=== PATIENT | male | born 1960 | race Caucasian/White ===

== ENCOUNTER 2018-07-09 08:35 | Outpatient (CLI) | payer BC, SELFPAY ==
[2018-07-09 10:00] LABS: TSH (W/Ref FT4) 2.79 uIU/mL (0.358-3.74)
== END 2018-07-09 08:55 ==
PROVIDERS: PCP Nurse Practitioner Family; Visit Provider Nurse Practitioner Family
DX: E03.9 Hypothyroidism, unspecified (principal)
CPT/HCPCS: 36415; 84443

== ENCOUNTER 2018-08-28 11:50 | Outpatient (CLI) | payer BC, SELFPAY ==
[2018-08-28 12:14] LABS: Abs Immature Grans 0.05 k/cumm (0.0-0.09); Absolute Basophil Count 0.03 k/cumm (0.0-0.2); Absolute Lymphocyte Count 2.96 k/cumm (1.2-3.4); Absolute Monocyte Count 1.09 k/cumm (0.11-0.7); Basophils % 0.3; Eosinophils % 0.9; HCT 47.5 % (40.0-50.0); HGB 16.3 g/dL (13.5-17.5); Immature Grans % 0.5; Lymphocytes % 27.1; Mean Corp. HGB Concentration 34.3 g/dL (32.0-36.0); Mean Corpuscular Volume 93.1 fL (80-95); Mean Platelet Volume 9.9 fL (8.0-11.0); Neutrophils % 61.2; Platelet Count 257 x1000/uL (130-400); RBC Distribution Width 13.5 % (11.8-14.1); White Blood Cell Count 10.93 k/cumm (4.4-10.8)
[2018-08-28 12:19] LABS: Absolute Neutrophil Count 6.69 k/cumm (1.2-6.7)
[2018-08-28 13:18] LABS: BUN 16 mg/dL (7-18); CREATININE 0.97 mg/dL (0.70-1.30); Calcium 9.3 mg/dL (8.5-10.1); Chloride 104 mmol/L (98-107); Glucose 118 mg/dL (70-100); Potassium 4.3 mmol/L (3.5-5.1); Sodium 140 mmol/L (136-145)
== END 2018-08-28 12:10 ==
PROVIDERS: PCP Nurse Practitioner Family; Visit Provider Nurse Practitioner Family
DX: Z01.818 Encounter for other preprocedural examination (principal)
CPT/HCPCS: 36415; 80048; 85025

== ENCOUNTER 2018-10-22 01:25 | Outpatient (CLI) | payer BC, SELFPAY ==
--- NOTE | 2018-10-22 10:58 | DI.RAD_ITS ---
SYMPTOMS/DIAGNOSIS: CERVICALGIA, M54.2, ? STENOSIS, DJD, OLD INJURY CERVICAL SPINE: Odontoid, AP, lateral and bilateral oblique views. No priors. The odontoid is intact. The lateral masses are well aligned. No acute fractures or subluxations are seen. There is mild disc space narrowing at C 5 - 6 and C 6 - 7. Endplate osteophytes are present from C 3 - 4 through C 6 - 7. There are degenerative changes of the facets seen at multiple levels bilaterally. Moderate narrowing of the neural foramen is seen on the left at C 3 - 4, C 5 - 6 and C 6 - 7 and the right from C 3 - 4 through C 6 - 7. The prevertebral soft tissues are unremarkable. IMPRESSION: Moderate degenerative changes throughout the cervical spine.
== END 2018-10-22 01:45 ==
PROVIDERS: PCP Nurse Practitioner Family; Visit Provider Nurse Practitioner Family
DX: M54.2 Cervicalgia (principal); M50.322 Other cervical disc degeneration at C5-C6 level
CPT/HCPCS: 72050

== ENCOUNTER 2019-02-25 11:10 | Outpatient (CLI) | payer MEDICAID, SELFPAY ==
--- NOTE | 2019-02-25 15:31 | DI.RAD_ITS ---
SYMPTOM/DIAGNOSIS: ? PATHOLOGICAL FX, ACUTE EXAC OF CHRONIC LOW BACK PAIN, M54.5, G89.29 LUMBAR SPINE: The vertebral bodies are intact. Disc space narrowing is noted at L 1-2 where prominent hypertrophic spurring is evident. Also there is disc space narrowing at L 3-4 and a narrowed vacuum disc is identified at L 4-5. Mild endplate spurring is noted at these levels. Degenerative facet joint changes are noted throughout. The pedicle, spinous and transverse processes are intact. There is no evidence of spondylosis or spondylolisthesis. The sacrum and sacroiliac joints are well maintained. SUMMARY: No evidence of a fracture. Degenerative changes as described above.
== END 2019-02-25 11:30 ==
PROVIDERS: PCP Nurse Practitioner Family; Visit Provider Nurse Practitioner Family
DX: G89.29 Other chronic pain (principal); M54.5 Low back pain; M51.36 Other intervertebral disc degeneration, lumbar region
CPT/HCPCS: 72110

== ENCOUNTER 2019-03-28 01:32 | Outpatient (CLI) | payer MEDICAID, SELFPAY ==
--- NOTE | 2019-03-28 13:35 | DI.MRI_ITS ---
SYMPTOMS/DIAGNOSIS: LUMBAGO WITH SCIATICA, BOTH SIDES; LOW BACK PAIN, CHRONIC PAIN; SPINAL STENOSIS; PAIN NOT BETTER WITH PHYSICAL THERAPY, M54.42, M54.41, M54.5, G89.29, M48.00, Z98.890 LUMBOSACRAL SPINE MRI: MRI examination of the lumbosacral spine was performed according to the usual protocol with additional pre and post contrast axial and sagittal T1 weighted images. The patient had a previous lumbar spine MRI on 01/22/18 and reportedly has had an interval facetectomy in August 2018. Facet hypertrophic changes again noted, question left facetectomy at L4-5. Please correlate with clinical history. No enhancing lesions seen. No evidence of abscess. Moderate disc bulge noted at L4-5 level similar to findings on previous examination. Moderate disc bulge also noted at L5-S1, quite similar to previous examination. Previously noted right lateral disc herniation at L3-4 is slightly less prominent on the current examination. No gross interval change in appearance of neural foramina with right-sided neural foraminal stenosis noted at L3-4, L4-5 and L5-S1 and left-sided neural foraminal stenosis noted at L4-5 and L5-S1. Note is again made of presumed healed bilateral L5 spondylolysis. CONCLUSION: No significant interval change in appearance except for a questioned slightly decreased prominence of right lateral disc herniation at L3- 4 in comparison with the previous examination of 01/22/18. The patient has reportedly had an interval facetectomy.
[2019-03-28 14:15] LABS: CREATININE 1.11 mg/dL (0.70-1.30)
[2019-03-28] MEDS: Normal Saline Flush 10 ML SYR IVP (14:43)
[2019-03-28] MEDS: Gadoterate meglumine 20 ML VIAL IVP (14:43)
[2019-03-28 15:05] LABS: Calculated LDL 39 mg/dL; Cholesterol 128 mg/dL (50-200); HDL Cholesterol 33 mg/dL (40-60); Triglyceride 283 mg/dL (30-150)
== END 2019-03-28 01:52 ==
PROVIDERS: PCP Nurse Practitioner Family; Visit Provider Nurse Practitioner Family
DX: E78.5 Hyperlipidemia, unspecified (principal); Z51.81 Encounter for therapeutic drug level monitoring; G89.29 Other chronic pain; M48.00 Spinal stenosis, site unspecified; M54.41 Lumbago with sciatica, right side; M54.42 Lumbago with sciatica, left side; M54.5 Low back pain; Z98.890 Other specified postprocedural states; M51.16 Intervertebral disc disorders with radiculopathy, lumbar region
CPT/HCPCS: 72158; 80061; 83721; 82565

== ENCOUNTER 2019-07-02 14:34 | Outpatient (CLI) | payer MEDICAID, SELFPAY ==
[2019-07-02 15:11] LABS: Abs Immature Grans 0.05 k/cumm (0.0-0.09); Absolute Basophil Count 0.05 k/cumm (0.0-0.2); Absolute Eosinophil Count 0.17 k/cumm (0.0-0.7); Absolute Lymphocyte Count 3.43 k/cumm (1.2-3.4); Absolute Monocyte Count 1.31 k/cumm (0.11-0.7); Basophils % 0.4; Eosinophils % 1.5; HCT 44.5 % (40.0-50.0); HGB 15.1 g/dL (13.5-17.5); Immature Grans % 0.4; Mean Corp. HGB Concentration 33.9 g/dL (32.0-36.0); Mean Corpuscular Hemoglobin 31.2 pg (27.0-33.0); Mean Corpuscular Volume 91.9 fL (80-95); Mean Platelet Volume 9.9 fL (8.0-11.0); Monocytes % 11.5; Neutrophils % 56.2; Platelet Count 337 x1000/uL (130-400); RBC 4.84 m/cumm (4.50-6.00); RBC Distribution Width 13.3 % (11.8-14.1); White Blood Cell Count 11.42 k/cumm (4.4-10.8)
[2019-07-02 15:12] LABS: Absolute Neutrophil Count 6.42 k/cumm (1.2-6.7)
[2019-07-02 15:55] LABS: ESR 16 mm/hr (1-20)
[2019-07-02 16:42] LABS: ALT 37 U/L (16-63); AST 21 U/L (15-37); Albumin 3.9 g/dL (3.4-5.0); Alkaline Phosphatase 180 U/L (46-116); Anion Gap 5.8 mmol/L (3-11); BUN 19 mg/dL (7-18); Bilirubin, Total 0.3 mg/dL (0.2-1.0); CO2 31.2 mmol/L (21.0-32.0); CREATININE 1.19 mg/dL (0.70-1.30); Calcium 9.3 mg/dL (8.5-10.1); Chloride 104 mmol/L (98-107); Folate 12.3 ng/mL (8.6-20.0); Glucose 99 mg/dL (70-100); Potassium 4.6 mmol/L (3.5-5.1); Sodium 141 mmol/L (136-145); TSH (W/Ref FT4) 7.86 uIU/mL (0.36-3.74); Total Protein 7.4 g/dL (6.4-8.2); Vitamin B12 405 pg/mL (193-986)
[2019-07-02 16:55] LABS: Hemoglobin A1C 6.1 % (4.5-6.2)
[2019-07-02 16:58] LABS: FREE T4 0.98 ng/dL (0.76-1.46)
[2019-07-03 11:09] LABS: Lyme Ab w Rflx to Lyme Confirm Negative; Syphilis Serology (RPR) Negative (Negative)
[2019-07-03 14:34] LABS: ANA Interpretation Positive (NEGAT); ANA Titer Pattern 1:320 Speckled
[2019-07-03 15:43] LABS: Albumin 57.3 % (55.8-66.1); Total Protein 7.4 g/dl (6.3-8.2)
[2019-07-03 18:28] LABS: Angiotensin Converting Enzyme 38 U/L (16 - 85)
[2019-07-04 17:00] LABS: Anaplasma phagocytophilum Negative (Negative); B. miyamotoi PCR Negative (Negative); Babesia divergens/MO-1 Negative (Negative); Babesia duncani Negative (Negative); Babesia microti Negative (Negative); Ehrlichia chaffeensis Negative (Negative); Ehrlichia ewingii/canis Negative (Negative); Ehrlichia muris eauclairensis Negative (Negative)
== END 2019-07-02 14:54 ==
PROVIDERS: PCP Nurse Practitioner Family; Visit Provider Nurse Practitioner Family
DX: E03.9 Hypothyroidism, unspecified (principal); R73.01 Impaired fasting glucose; G62.9 Polyneuropathy, unspecified
CPT/HCPCS: 36415; 80053; 82164; 85652; 87798; 82607; 82746; 83036; 84165; 84439; 84443; 85025; 86038; 86592; 86618

== ENCOUNTER 2019-07-14 08:56 | Outpatient (CLI) | payer MEDICAID, SELFPAY ==
[2019-07-14 15:06] LABS: TSH (W/Ref FT4) 4.44 uIU/mL (0.36-3.74)
[2019-07-15 13:54] LABS: HCV RNA Detection Quantitative Undetected IU/mL (UNDECT)
[2019-07-15 14:52] LABS: SS-A Antibody 8.4 Units (<20)
[2019-07-15 15:13] LABS: dsDNA Ab, IgG <12.3 IU/mL (<30)
[2019-07-16 12:23] LABS: Smooth Muscle Ab Screen Negative (Negative)
== END 2019-07-14 09:16 ==
PROVIDERS: PCP Family Medicine; Visit Provider Family Medicine
DX: E03.9 Hypothyroidism, unspecified (principal); G62.9 Polyneuropathy, unspecified
CPT/HCPCS: 36415; 86803; 84439; 84443; 86225; 86235; 86255; 87522

== ENCOUNTER 2019-10-03 11:20 | Outpatient (CLI) | payer MEDICAID, SELFPAY ==
[2019-10-03 13:08] LABS: TSH (W/Ref FT4) 4.19 uIU/mL (0.36-3.74)
[2019-10-03 13:31] LABS: FREE T4 1.07 ng/dL (0.76-1.46)
== END 2019-10-03 11:40 ==
PROVIDERS: PCP Family Medicine; Visit Provider Family Medicine
DX: E03.9 Hypothyroidism, unspecified (principal)
CPT/HCPCS: 36415; 82274; 84439; 84443

== ENCOUNTER 2020-03-03 02:42 | Outpatient (CLI) | payer MEDICAID, SELFPAY ==
[2020-03-03 10:35] LABS: TSH (W/Ref FT4) 4.64 uIU/mL (0.36-3.74)
[2020-03-03 10:51] LABS: FREE T4 1.26 ng/dL (0.76-1.46)
== END 2020-03-03 03:02 ==
PROVIDERS: PCP Family Medicine; Visit Provider Family Medicine
DX: E03.9 Hypothyroidism, unspecified (principal)
CPT/HCPCS: 36415; 84439; 84443

== ENCOUNTER 2020-07-05 06:06 | Outpatient (CLI) | payer MEDICAID, SELFPAY ==
[2020-07-05 13:53] LABS: TSH (W/Ref FT4) 1.39 uIU/mL (0.36-3.74)
== END 2020-07-05 06:26 ==
PROVIDERS: PCP Family Medicine; Visit Provider Family Medicine
DX: E03.9 Hypothyroidism, unspecified (principal)
CPT/HCPCS: 36415; 84443

== ENCOUNTER 2021-02-23 03:20 | Outpatient (CLI) | payer MEDICAID, SELFPAY ==
[2021-02-23 09:25] LABS: Calculated LDL 68 mg/dL (<100); Cholesterol 122 mg/dL (<200); HDL Cholesterol 37 mg/dL (40-60); TSH 3.18 uIU/mL (0.36-3.74); Triglyceride 85 mg/dL (<150)
== END 2021-02-23 03:21 | disposition home or self-care (01) ==
LOC: LBO 03:21
PROVIDERS: PCP Family Medicine; Visit Provider Family Medicine
DX: E03.9 Hypothyroidism, unspecified (principal); E78.5 Hyperlipidemia, unspecified
CPT/HCPCS: 36415; 80061; 84443

== ENCOUNTER 2022-03-20 02:46 | Outpatient (CLI) | payer MEDICARE, MEDICAID, SELFPAY ==
[2022-03-20 16:30] LABS: Anion Gap 6.8 mmol/L (3-11); BUN 22 mg/dL (7-18); CO2 27.2 mmol/L (21.0-32.0); Calcium 9.1 mg/dL (8.5-10.1); Chloride 101 mmol/L (98-107); Glucose 89 mg/dL (74-106); Sodium 135 mmol/L (136-145)
== END 2022-03-20 02:47 | disposition home or self-care (01) ==
LOC: LBO 02:46
PROVIDERS: PCP Family Medicine; Visit Provider Family Medicine
DX: I10 Essential (primary) hypertension (principal); E03.9 Hypothyroidism, unspecified
CPT/HCPCS: 36415; 80048; 84443

== ENCOUNTER → 2022-07-21 01:03 | Outpatient (CLI) | payer MEDICARE, MEDICAID, SELFPAY ==
--- OUTSIDE RECORDS SUMMARY | 2022-07-21 01:04 | XMS_ITS | Clinical Summary ---
:1960 Author Organization [facility] [place] [address] Care Team Providers Name Role Phone Price Kilpatrick DO Primary Care Provider Allergies Active Allergy Reactions Severity Noted Date Comments Hydrochlorothiazide Other (See Comments) 02/28/2019 Water retention,could not pee Lisinopril Itching 02/28/2019 Penicillins 02/19/2018 Medications Medication Sig Dispensed Refills Start Date End Date Status aspirin 81 mg Tablet, Take 1 tablet by 0 02/25/2015 Active Delayed Release (E.C.) mouth daily. atorvastatin (LIPITOR) Take 1 tablet by 0 10/22/2014 Active 10 mg Tablet mouth daily. cyclobenzaprine Take 1 tablet by 0 01/04/2018 Active (FLEXERIL) 10 mg Tablet mouth 3 times daily. levothyroxine take 1 tablet by 0 03/22/2018 Active (SYNTHROID) 100 mcg mouth every Tablet morning ;ON EMPTY STOMACH,AT LEAST 30-60 MINUTES BEFORE FOOD irbesartan (AVAPRO) 300 300 mg. 0 12/31/2018 Active mg Tablet lidocaine (XYLOCAINE) 5 APPLY twice a 0 02/27/2019 Active % Ointment day to four times a day if needed for pain omeprazole (PRILOSEC) 40 take 1 capsule 0 02/20/2019 Active mg Capsule, Delayed by mouth every Release(E.C.) morning AT LEAST 20-30 MINUTES BEFORE FIRST MEAL amLODIPine (NORVASC) 5 daily. 0 01/30/2019 Active mg Tablet lansoprazole (PREVACID) take 1 capsule 0 07/29/2019 Active 30 mg Capsule, Delayed by mouth once Release(E.C.) daily celecoxib (CELEBREX) 200 take 1 capsule 0 09/01/2019 Active mg Capsule by mouth daily losartan (COZAAR) 100 mg Take by mouth. 0 Active Tablet HYDROcodone-acetaminophe Take 1 tablet by 15 tablet 0 09/15/20 19 Active n (NORCO) 5-325 mg mouth every 6 Tablet hours as needed. Additional Information Patient not taking. Reported on 10/13/2019 ibuprofen (ADVIL;MOTRIN) 600 mg Take 1 tablet by mouth 20 tablet 0 09/15/2019 Active Tablet every 6 hours as needed for Pain. Additional Information Patient not taking. Reported on 10/13/2019 pantoprazole EC (PROTONIX) 40 mg Take 40 mg by mouth daily. 0 09/19/2019 Active Tablet, Delayed Release (E.C.) Active Problems Problem Noted Date Spinal stenosis 02/19/2018 Overview: L4-5, L5-S1 lateral recess and neurofora men Remote surgery right L4-5 Laser s urgery in [place] Social History Tobacco Use Types Packs/Day Years Used Date Current Every Day Smoker Cigarettes 1 20 Smokeless Tobacco: Never Used Tobacco Cessation: Ready to Quit: Yes; C ounseling Given: Yes Alcohol Use Standard Drinks/Week Comments Not Currently 0 (1 standard drink = 0.6 oz pure alcoho l) Sex Assigned at Date Recorded Not on file Last Filed Vital Signs Vital Sign Reading Time Taken Comments Blood Pressure 141/84 10/13/2019 7:37 AM EST Pulse 75 10/13/2019 7:37 AM EST Temperature 36.4 ??C (97.5 ??F) 10/13/2019 7:37 AM EST Respiratory Rate 16 06/03/2019 9:50 AM EDT Oxygen Saturation 97% 10/13/2019 7:37 AM EST Inhaled Oxygen Concentration - - Weight 124.7 kg (275 lb) 10/13/2019 7:37 AM EST Height 185.4 cm (6' 1) 10/13/2019 7:37 AM EST Body Mass Index 36.28 10/13/2019 7:37 AM EST Plan of Treatment Health Maintenance Due Date Last Done Comments Covid-19 Vaccine (#1) 06[birth year]14/1961 Pneumococcal Vaccine: At-Risk 5-64yrs (1 - PCV) 1968 HIV screen 1980 Hepatitis C Screening 1980 Tdap adult 1981 Tetanus vaccine 1981 Diabetes Screening (HgbA1C or Glucose) 2002 Colonoscopy 12/13/2007 Zoster vaccine (1 of 2) 2012 Advance Directive 2017 Influenza (Flu) vaccine (1 of 1 - Influenza standard 06/01/2022 series) Insurance Payer Benefit Plan / Subscriber ID Effective Dates Phone Addre ss Type [place] [id number] 2019-Pres [phone] [address] PRIMARY CARE nt 7 [facility] [id number] Advance Directives Latest Code Status on File Code Status Date Activated Date Inactivated Comments Full Code 06/03/2019 8:36 AM 06/03/2019 12:14 PM Does patient have capacity to make decision: Yes Care Teams Rag Sorter Relationship Specialty Start Date End Date Price Kilpatrick DO PCP - General Family Medicine 08/13/[address] [place] [address]
--- OUTSIDE RECORDS SUMMARY | 2022-07-21 01:04 | XMS_ITS | Encounter Summary ---
:1960 Author Organization [facility] [place] [address] Care Team Providers Name Role Phone Price Kilpatrick DO Primary Care Provider Encounter Details Date Type Department Care Team Description 01/08/2020 Telephone General Surgery at [facility] [place] [place] [address] Social History Tobacco Use Types Packs/Day Years Used Date Current Every Day Smoker Cigarettes 1 20 Smokeless Tobacco: Never Used Alcohol Use Standard Drinks/Week Comments Not Currently 0 (1 standard drink = 0.6 oz pure alcoho l) Sex Assigned at Date Recorded Not on file documented as of this encounter Plan of Treatment Not on filedocumented as of this encounter Visit Diagnoses Not on filedocumented in this encounter Care Teams Isolation Washer Relationship Specialty Start Date End Date Price Kilpatrick DO PCP - General Family Medicine 08/13/[address] [place] [address] documented as of this encounter
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
--- OUTSIDE RECORDS SUMMARY | 2022-07-21 01:05 | XMS_ITS | Encounter Summary ---
:1960 Author Organization [facility] [place] [address] Care Team Providers Name Role Phone Desire Augustin APRN Primary Care Provider Encounter Details Date Type Department Care Team Description 04/18/2018 Telephone Pain Management at [facility], [place] [address] Social History Tobacco Use Types Packs/Day Years Used Date Current Every Day Smoker Cigarettes 1 Smokeless Tobacco: Never Used Sex Assigned at Date Recorded Not on file documented as of this encounter Miscellaneous Notes Telephone Encounter - Lucrecia Ludwig RN - 04/18/2018 11:33 AM EDT Outgoing call to patient per Dr. Mclean He could go to Occupational Medicine and have an evaluation for this issue. ??I do not do these types of evaluations. ? Thanks, ? dvd No answer Nurse left a message awaiting call back at this time. documented in this encounter Plan of Treatment Not on filedocumented as of this encounter Visit Diagnoses Not on filedocumented in this encounter Care Teams Jewelry Coater Relationship Specialty Start Date End Date Desire Augustin APRN PCP - General Family Medicine 02/19/18 08/12/19 [address] [place] [address] documented as of this encounter
--- OUTSIDE RECORDS SUMMARY | 2022-07-21 01:05 | XMS_ITS | Encounter Summary ---
:1960 [place] [address] Care Team Providers Name Role Phone Belem Mckeon MD Primary Care Provider Encounter Details Date Type Department Care Team Description 01/22/2018 Hospital Encounter Radiology Library at Manuela Kohler MD [facility] [place] [address] [place] [address] [phone] (Wo rk) Social History Tobacco Use Types Packs/Day Years Used Date Never Assessed Sex Assigned at Date Recorded Not on file documented as of this encounter Medications at Time of Discharge Medication Sig Dispensed Refills Start Date End Date aspirin 81 mg Tablet, Take 1 tablet by 0 02/26/20 15 Delayed Release (E.C.) mouth daily. atorvastatin (LIPITOR) 10 Take 1 tablet by 0 10/02 mg Tablet mouth daily. cyclobenzaprine (FLEXERIL) Take 1 tablet by 0 03/2018 10 mg Tablet mouth 3 times daily. losartan (COZAAR) 100 mg Take 1 tablet by 0 09/1009/03/2019 Tablet mouth daily. documented as of this encounter Plan of Treatment Not on filedocumented as of this encounter Procedures Procedure Name Priority Date/Time Associated Diagnosis Comme nts FILM LIBRARY Routine 01/22/2018 12:00 AM Results for this STORAGE ONLY MR EDT procedure ar e in SPINE the results section. documented in this encounter Results Film Library- Storage Only MR Spine (01/22/2018 12:00 AM EDT) Specimen (Source) Anatomical Location Collection Method / Collectio n Time Received Time / Laterality Volume Narrative RAD - 02/16/2018 2:17 PM EDT This exam is for storage only and is aut o-finalizing. Shivam Kohler MD IMG FILM LIBRARY ORDERABLES Performing Organization Address City/State/ZIP Code Phon e Number [place], [place] documented in this encounter Visit Diagnoses Not on filedocumented in this encounter Care Teams Federal Java Developer Relationship Specialty Start Date End Date Belem Mckeon MD PCP - General General Internal Medicine 07/14/15 [address] [place] [address] documented as of this encounter
--- OUTSIDE RECORDS SUMMARY | 2022-07-21 01:05 | XMS_ITS | Encounter Summary ---
:1960 Author Organization [facility] [place] [address] Care Team Providers Name Role Phone Desire Augustin APRN Primary Care Provider Reason for Referral Diagnostic Test (Routine) - Specialty Diagnoses / Procedures Referred By Contact Refer red To Contact Radiology Diagnoses Hari San MD [facility] Rad Mri Procedures MRI Cervical Spine wo Contrast (Generic) [address] [facility] [address] [address] Fax: Referral ID Status Reason Start Date Expiration Visits Visits Date Requested Authorized [id number] Specialty 06/09/2019 09/07/2019 1 1 Service Requested iagnostic Test (Routine) - Closed Specialty Diagnoses / Procedures Referred By Contact Refer red To Contact Radiology Diagnoses Hari San MD [facility] Rad Mri Procedures MRI Brain wo Contrast [address] [facility] 10 [place] [address] [place] [address] Fax: Referral ID Status Reason Start Date Expiration Date Visits V isits Requested Authorized [id number] Closed Specialty 06/09/2019 09/07/2019 1 1 Service Requested Reason for Visit Diagnostic Test (Routine) - Closed Specialty Diagnoses / Procedures Referred By Contact Refer red To Contact Radiology Diagnoses Hari San MD [facility] Rad Mri Procedures MRI Brain wo Contrast [address] [facility] [address] [place] [address] [place] [address] Fax: Referral ID Status Reason Start Date Expiration Date Visits V isits Requested Authorized [id number] Closed Specialty 06/09/2019 09/07/2019 1 1 Service Requested Encounter Details Date Type Department Care Team Description 06/19/2019 Hospital Encounter Radiology MRI at Hari Wu MD Ariadne Turner [facility] [place] [address] [place] [address] [phone] Social History Tobacco Use Types Packs/Day Years Used Date Current Every Day Smoker Cigarettes 1 Smokeless Tobacco: Never Used Alcohol Use Standard Drinks/Week Comments Not Currently 0 (1 standard drink = 0.6 oz pure alcoho l) Sex Assigned at Date Recorded Not on file documented as of this encounter Medications at Time of Discharge Medication Sig Dispensed Refills Start Date End Date irbesartan (AVAPRO) 300 mg 300 mg. 0 9 Tablet lidocaine (XYLOCAINE) 5 % APPLY twice a day 0 Ointment to four times a day if needed for pain omeprazole (PRILOSEC) 40 mg take 1 capsule by 0 0 02/20/2019 Capsule, Delayed mouth every Release(E.C.) morning AT LEAST 20-30 MINUTES BEFORE FIRST MEAL amLODIPine (NORVASC) 5 mg daily. 0 01/30/2019 Tablet levothyroxine (SYNTHROID) take 1 tablet by 0 03/02 100 mcg Tablet mouth every morning ;ON EMPTY STOMACH,AT LEAST 30-60 MINUTES BEFORE FOOD aspirin 81 mg Tablet, Take 1 tablet by 0 02/26/20 15 Delayed Release (E.C.) mouth daily. atorvastatin (LIPITOR) 10 Take 1 tablet by 0 10/02 mg Tablet mouth daily. cyclobenzaprine (FLEXERIL) Take 1 tablet by 0 03/2018 10 mg Tablet mouth 3 times daily. esomeprazole (NEXIUM) 40 mg Take 40 mg by 0 09/03/2019 Capsule, Delayed mouth 2 times Release(E.C.) daily. losartan (COZAAR) 100 mg Take 1 tablet by 0 09/1009/03/2019 Tablet mouth daily. documented as of this encounter Plan of Treatment Not on filedocumented as of this encounter Procedures Procedure Name Priority Date/Time Associated Diagnosis Comme nts MRI CERVICAL SPINE Routine 06/19/2019 10:51 AM Ataxia Re sults for this WO CONTRAST EDT procedure are i n the results section. MRI BRAIN WO Routine 06/19/2019 10:51 AM Ataxia Results for this CONTRAST EDT procedure are i n the results section. documented in this encounter Results MRI Cervical Spine wo Contrast (Generic) (06/19/2019 10:51 AM EDT) Anatomical Region Laterality Modality C-spine Magnetic Resonance Specimen (Source) Anatomical Location Collection Method / Collectio n Time Received Time / Laterality Volume Impressions 06/19/2019 11:28 AM EDT No definite evidence for focal neurodegenerative process. No evidence for cervical myelopathy. Thank you for letting us participate in the care of this patient. For questions regarding this report, please contact e number below. ? Narrative 06/19/2019 11:28 AM EDT EXAMINATION: MRI CERVICAL SPINE WO CONTRAST (GENERIC), MRI BRAIN WO CONTRAST CLINICAL HISTORY: ataxia, attn: posterio r fossa and craniocervical junction and cervical cord TECHNIQUE: MRI of the brain and cervical spine perf ormed without intravenous contrast administration. COMPARISON: None FINDINGS: Brain: A few scattered nonspecific foci of white matter T2 prolongation. No mass effect or diffusion-weighted abnormality . No evidence for prior cerebellar infarction. The ventricles are within no rmal limits of caliber. Only mild prominence of superior vermian sulci. Mi dline sagittal structures are otherwise unremarkable. No disproportionate brains tem or cerebellar atrophy. Perivascular spaces noted in the basal ganglia and br ainstem. Trace ethmoid air cell mucosal thickening. The remainder the paranasal sinuses and otomastoid spaces are clear. The orbits appear normal. Cervical spine: Mild degenerative change posterior to the dens which mildly indents the ventral thecal sac without c ausing canal stenosis. The cervical cord is normal in caliber. No definite cord s ignal. Regional marrow signal is unremarkable. Right uncovertebral and facet arthropath y at C2-C3 produce at least moderate right neural foraminal narrowing. Withou t a known stenosis. Asymmetric right uncovertebral and bilateral facet arthro nathalia at C3-C4 produce at least moderate bilateral neural foraminal stenosis. Rig ht paracentral disc protrusion and right worse than left uncovertebral osteophyte s and facet arthropathy at C4-5 produce severe right neural foraminal stenosis a nd mild right canal narrowing. Posterior disc osteophyte complex and small centra l disc protrusion at C5-6 produces mild canal narrowing. Uncovertebral osteophyt es and facet arthropathy produce moderate to severe neural foraminal sten osis at C5-6 posterior disc osteophyte complex at C6-7 and inward buckling of l igamentum flavum contribute to mild to moderate canal narrowing moderate neural foraminal narrowing. Procedure Note Abena Fink MD - 06/19/2019Form atting of this note might be different from the original. EXAMINATION: MRI CERVICAL SPINE WO CONTR AST (GENERIC), MRI BRAIN WO CONTRAST CLINICAL HISTORY: ataxia, attn: posterio r fossa and craniocervical junction and cervical cord TECHNIQUE: MRI of the brain and cervical spine perf ormed without intravenous contrast administration. COMPARISON: None FINDINGS: Brain: A few scattered nonspecific foci of white matter T2 prolongation. No mass effect or diffusion-weighted abnormality . No evidence for prior cerebellar infarction. The ventricles are within no rmal limits of caliber. Only mild prominence of superior vermian sulci. Mi dline sagittal structures are otherwise unremarkable. No disproportionate brains tem or cerebellar atrophy. Perivascular spaces noted in the basal ganglia and br ainstem. Trace ethmoid air cell mucosal thickening. The remainder the paranasal sinuses and otomastoid spaces are clear. The orbits appear normal. Cervical spine: Mild degenerative change posterior to the dens which mildly indents the ventral thecal sac without c ausing canal stenosis. The cervical cord is normal in caliber. No definite cord s ignal. Regional marrow signal is unremarkable. Right uncovertebral and facet arthropath y at C2-C3 produce at least moderate right neural foraminal narrowing. Withou t a known stenosis. Asymmetric right uncovertebral and bilateral facet arthro nathalia at C3-C4 produce at least moderate bilateral neural foraminal stenosis. Rig ht paracentral disc protrusion and right worse than left uncovertebral osteophyte s and facet arthropathy at C4-5 produce severe right neural foraminal stenosis a nd mild right canal narrowing. Posterior disc osteophyte complex and small centra l disc protrusion at C5-6 produces mild canal narrowing. Uncovertebral osteophyt es and facet arthropathy produce moderate to severe neural foraminal sten osis at C5-6 posterior disc osteophyte complex at C6-7 and inward buckling of l igamentum flavum contribute to mild to moderate canal narrowing moderate neural foraminal narrowing. IMPRESSION No definite evidence for focal neurodege nerative process. No evidence for cervical myelopathy. Thank you for letting us participate in the care of this patient. For questions regarding this report, please contact e number below. Hari Matute MD IMG MRI ORDERABLES MRI Brain wo Contrast (06/19/2019 10:51 AM EDT) Anatomical Region Laterality Modality Head Magnetic Resonance Specimen (Source) Anatomical Location Collection Method / Collectio n Time Received Time / Laterality Volume Impressions 06/19/2019 11:28 AM EDT No definite evidence for focal neurodegenerative process. No evidence for cervical myelopathy. Thank you for letting us participate in the care of this patient. For questions regarding this report, please contact e number below. ? Narrative 06/19/2019 11:28 AM EDT EXAMINATION: MRI CERVICAL SPINE WO CONTRAST (GENERIC), MRI BRAIN WO CONTRAST CLINICAL HISTORY: ataxia, attn: posterio r fossa and craniocervical junction and cervical cord TECHNIQUE: MRI of the brain and cervical spine perf ormed without intravenous contrast administration. COMPARISON: None FINDINGS: Brain: A few scattered nonspecific foci of white matter T2 prolongation. No mass effect or diffusion-weighted abnormality . No evidence for prior cerebellar infarction. The ventricles are within no rmal limits of caliber. Only mild prominence of superior vermian sulci. Mi dline sagittal structures are otherwise unremarkable. No disproportionate brains tem or cerebellar atrophy. Perivascular spaces noted in the basal ganglia and br ainstem. Trace ethmoid air cell mucosal thickening. The remainder the paranasal sinuses and otomastoid spaces are clear. The orbits appear normal. Cervical spine: Mild degenerative change posterior to the dens which mildly indents the ventral thecal sac without c ausing canal stenosis. The cervical cord is normal in caliber. No definite cord s ignal. Regional marrow signal is unremarkable. Right uncovertebral and facet arthropath y at C2-C3 produce at least moderate right neural foraminal narrowing. Withou t a known stenosis. Asymmetric right uncovertebral and bilateral facet arthro nathalia at C3-C4 produce at least moderate bilateral neural foraminal stenosis. Rig ht paracentral disc protrusion and right worse than left uncovertebral osteophyte s and facet arthropathy at C4-5 produce severe right neural foraminal stenosis a nd mild right canal narrowing. Posterior disc osteophyte complex and small centra l disc protrusion at C5-6 produces mild canal narrowing. Uncovertebral osteophyt es and facet arthropathy produce moderate to severe neural foraminal sten osis at C5-6 posterior disc osteophyte complex at C6-7 and inward buckling of l igamentum flavum contribute to mild to moderate canal narrowing moderate neural foraminal narrowing. Procedure Note Abena Fink MD - 06/19/2019Form atting of this note might be different from the original. EXAMINATION: MRI CERVICAL SPINE WO CONTR AST (GENERIC), MRI BRAIN WO CONTRAST CLINICAL HISTORY: ataxia, attn: posterio r fossa and craniocervical junction and cervical cord TECHNIQUE: MRI of the brain and cervical spine perf ormed without intravenous contrast administration. COMPARISON: None FINDINGS: Brain: A few scattered nonspecific foci of white matter T2 prolongation. No mass effect or diffusion-weighted abnormality . No evidence for prior cerebellar infarction. The ventricles are within no rmal limits of caliber. Only mild prominence of superior vermian sulci. Mi dline sagittal structures are otherwise unremarkable. No disproportionate brains tem or cerebellar atrophy. Perivascular spaces noted in the basal ganglia and br ainstem. Trace ethmoid air cell mucosal thickening. The remainder the paranasal sinuses and otomastoid spaces are clear. The orbits appear normal. Cervical spine: Mild degenerative change posterior to the dens which mildly indents the ventral thecal sac without c ausing canal stenosis. The cervical cord is normal in caliber. No definite cord s ignal. Regional marrow signal is unremarkable. Right uncovertebral and facet arthropath y at C2-C3 produce at least moderate right neural foraminal narrowing. Withou t a known stenosis. Asymmetric right uncovertebral and bilateral facet arthro nathalia at C3-C4 produce at least moderate bilateral neural foraminal stenosis. Rig ht paracentral disc protrusion and right worse than left uncovertebral osteophyte s and facet arthropathy at C4-5 produce severe right neural foraminal stenosis a nd mild right canal narrowing. Posterior disc osteophyte complex and small centra l disc protrusion at C5-6 produces mild canal narrowing. Uncovertebral osteophyt es and facet arthropathy produce moderate to severe neural foraminal sten osis at C5-6 posterior disc osteophyte complex at C6-7 and inward buckling of l igamentum flavum contribute to mild to moderate canal narrowing moderate neural foraminal narrowing. IMPRESSION No definite evidence for focal neurodege nerative process. No evidence for cervical myelopathy. Thank you for letting us participate in the care of this patient. For questions regarding this report, please contact e number below. Hari Matute MD IMG MRI ORDERABLES documented in this encounter Visit Diagnoses Diagnosis Ataxia Lack of coordination documented in this encounter Care Teams Manganese Heater Relationship Specialty Start Date End Date Desire Augustin APRN PCP - General Family Medicine 02/19/18 08/12/[address] [place] [address] documented as of this encounter
--- OUTSIDE RECORDS SUMMARY | 2022-07-21 01:05 | XMS_ITS | Encounter Summary ---
:1960 Author Organization [facility] [place] [address] Care Team Providers Name Role Phone Desire Augustin APRN Primary Care Provider Encounter Details Date Type Department Care Team Description 09/10/2018 Interpretation Only [facility] Angela Grubbs, [address], [place] [address] [address] [facility] [phone] [place], [place] [address] (Wo rk) Social History Tobacco Use Types Packs/Day Years Used Date Current Every Day Smoker Cigarettes 1 Smokeless Tobacco: Never Used Sex Assigned at Date Recorded Not on file documented as of this encounter Plan of Treatment Not on filedocumented as of this encounter Procedures Procedure Name Priority Date/Time Associated Diagnosis Comme nts XR FLUORO MORE THAN Routine 09/10/2018 12:00 AM R esults for this ONE HOUR EST procedure are i n the results section. documented in this encounter Results XR FLUORO MORE THAN ONE HOUR (09/10/2018 12:00 AM EST) Anatomical Region Laterality Modality Other Specimen (Source) Anatomical Location Collection Method / Collectio n Time Received Time / Laterality Volume 09/10/2018 Impressions 09/11/2018 2:22 PM EST C-arm fluoroscopy used for intraoperative guidance. The osseous structures are poorly visualized on these lateral lumbo sacral fluoroscopic images. Fluoroscopy time: 5.9 seconds Dose (mGy): 2.95 Narrative 09/11/2018 2:22 PM EST EXAMINATION: C-ARM (=>1HR) CLINICAL HISTORY: L4/L5 MEDIAL FACETECTO MY - LEFT, ?? Procedure Note Iam Pino MD - 09/11/2018Format ting of this note might be different from the original. EXAMINATION: C-ARM (=>1HR) CLINICAL HISTORY: L4/L5 MEDIAL FACETECTO MY - LEFT, IMPRESSION C-arm fluoroscopy used for intraoperativ e guidance. The osseous structures are poorly visualized on these lateral lumbo sacral fluoroscopic images. Fluoroscopy time: 5.9 seconds Dose (mGy): 2.95 Angela Grubbs MD [facility] documented in this encounter Visit Diagnoses Not on filedocumented in this encounter Care Teams Pet Supplies Salesperson Relationship Specialty Start Date End Date Desire Augustin APRN PCP - General Family Medicine 02/19/18 08/12/[address] [place] [address] documented as of this encounter
--- OUTSIDE RECORDS SUMMARY | 2022-07-21 01:05 | XMS_ITS | Encounter Summary ---
:1960 Author Organization [facility] [place] [address] Care Team Providers Name Role Phone Desire Augustin APRN Primary Care Provider Reason for Visit Reason Onset Date Comments Pre Procedure Call 05/17/2018 Encounter Details Date Type Department Care Team Description 05/17/2018 Telephone Pain Management at Patricia Silvestre LNA [place] [address] Social History Tobacco Use Types Packs/Day Years Used Date Current Every Day Smoker Cigarettes 1 Smokeless Tobacco: Never Used Sex Assigned at Date Recorded Not on file documented as of this encounter Miscellaneous Notes Telephone Encounter - Patricia Silvestre LNA - 05/17/2018 12:27 PM EDT Du Mojica :1960 Message left: I left a message on answering machine Mr. Mojica at 12:27 PM regarding his upcoming Left lumbar epidural steroid injection with Dr. Kayli Larson MD. Message included the followin. Patient instructed to arrive at 100 (30 minutes prior to procedure start time) on 05/20/2018 (dateof procedure) with their driver's license reviewing officer. 2. Following instructions left in the message: - Bring Updated list of medications including dosage and reason for taking. - Call the Pain Clinic Nurse at for: ~Procedure instructions. ~If you are taking antibiotics. ~If you have any signs or symptoms of infection, cold or flu. ~If you have any skin breakdown (rashes, cysts, or abscess.) ~If you are taking anticoagulants / blood thinners (Plavix, Pletal, Lovenox, Coumadin, etc). ~If you had any steroid injections anywhere in your body within the last two weeks? GERTRUDIS Lau documented in this encounter Plan of Treatment Not on filedocumented as of this encounter Visit Diagnoses Not on filedocumented in this encounter Care Teams Grain Merchandiser Relationship Specialty Start Date End Date Desire Augustin APRN PCP - General Family Medicine 02/19/18 08/12/[address] [place] [address] documented as of this encounter
--- OUTSIDE RECORDS SUMMARY | 2022-07-21 01:05 | XMS_ITS | Encounter Summary ---
:1960 [place] [address] Care Team Providers Name Role Phone Desire Augustin APRN Primary Care Provider Encounter Details Date Type Department Care Team Description 02/25/2019 Ancillary Procedure Radiology Library at Hope Reid [facility] [place] [address] [place] [address] PAIN MEDICINE [phone] [place], [place] [address] (Wo rk) Social History Tobacco Use Types Packs/Day Years Used Date Current Every Day Smoker Cigarettes 1 Smokeless Tobacco: Never Used Sex Assigned at Date Recorded Not on file documented as of this encounter Plan of Treatment Not on filedocumented as of this encounter Procedures Procedure Name Priority Date/Time Associated Diagnosis Comme nts FILM LIBRARY Routine 02/25/2019 12:00 AM Results for this STORAGE ONLY DX EDT procedure ar e in SPINE the results section. documented in this encounter Results Film Library- Storage Only DX Spine (02/25/2019 12:00 AM EDT) Specimen (Source) Anatomical Location Collection Method / Collectio n Time Received Time / Laterality Volume Narrative RAD - 02/26/2019 11:16 AM EDT This exam is auto-finalizing. It's purpo se is for storage only. Nannette Reid APRN IMG FILM LIBRARY ORDERABLES Performing Organization Address City/State/ZIP Code Phon e Number RAD [place], [place] documented in this encounter Visit Diagnoses Not on filedocumented in this encounter Care Teams Technical Sales Support Specialist Relationship Specialty Start Date End Date Desire Augustin, SAUSAGE MACHINE OPERATOR PCP - General Family Medicine 02/19/18 08/12/[address] [place] [address] documented as of this encounter
--- OUTSIDE RECORDS SUMMARY | 2022-07-21 01:05 | XMS_ITS | Encounter Summary ---
:1960 [place] [address] Care Team Providers Name Role Phone Belem Mckeon MD Primary Care Provider Encounter Details Date Type Department Care Team Description 12/13/2017 Hospital Encounter Radiology Library at Maunela Kohler MD [facility] [place] [address] [place] [address] [phone] (Wo rk) Social History Tobacco Use Types [...] by 0 10/02 mg Tablet mouth daily. losartan (COZAAR) 100 mg Take 1 tablet by 0 09/1009/03/2019 Tablet mouth daily. documented as of this encounter Plan of Treatment Not on filedocumented as of this encounter Procedures Procedure Name Priority Date/Time Associated Diagnosis Comme nts FILM LIBRARY Routine 12/13/2017 12:00 AM Results for this STORAGE ONLY DX HIP EDT procedur e are in the results section. documented in this encounter Results Film Library- Storage Only DX Hip (12/13/2017 12:00 AM EDT) Specimen (Source) Anatomical Location Collection Method / Collectio n Time Received Time / Laterality Volume Narrative RAD - 02/16/2018 2:16 PM EDT This exam is for storage only and is aut o-finalizing. Shivam Kohler MD IMG FILM LIBRARY ORDERABLES Performing Organization Address City/State/ZIP Code Phon e Number [place], [place] documented in this encounter Visit Diagnoses Not on filedocumented in this encounter Care Teams Wool Supplier Relationship Specialty Start Date End Date Belem Mckeon MD PCP - General General Internal Medicine 07/14/15 [address] [place] [address] documented as of this encounter
--- OUTSIDE RECORDS SUMMARY | 2022-07-21 01:05 | XMS_ITS | Encounter Summary ---
:1960 [place] [address] Care Team Providers Name Role Phone Desire Augustin APRN Primary Care Provider Encounter Details Date Type Department Care Team Description 03/28/2019 Ancillary Procedure Radiology Library at [facility] [place] MIREYA [facility] [place] [place] [address] PAIN MEDICINE [phone] [place], [place] [address] (Wo rk) Social History Tobacco Use Types Packs/Day Years Used Date Current Every Day Smoker Cigarettes 1 Smokeless Tobacco: Never Used Sex Assigned at Date Recorded Not on file documented as of this encounter Plan of Treatment Not on filedocumented as of this encounter Procedures Procedure Name Priority Date/Time Associated Diagnosis Comme nts FILM LIBRARY Routine 03/28/2019 12:00 AM Results for this STORAGE ONLY MR EDT procedure ar e in SPINE the results section. documented in this encounter Results Film Library- Storage Only MR Spine (03/28/2019 12:00 AM EDT) Specimen (Source) Anatomical Location Collection Method / Collectio n Time Received Time / Laterality Volume Narrative ADAN - 04/01/2019 1:20 PM EDT This exam is auto-finalizing. It's purpo se is for storage only. Nannette Reid APRN IMG FILM LIBRARY ORDERABLES Performing Organization Address City/State/ZIP Code Phon e Number [facility] [place] documented in this encounter Visit Diagnoses Not on filedocumented in this encounter Care Teams Video Operator Relationship Specialty Start Date End Date Desire Augustin, DIRECTOR INTERNAL COMMUNICATIONS PCP - General Family Medicine 02/19/18 08/12/[address] [place] [address] documented as of this encounter
--- OUTSIDE RECORDS SUMMARY | 2022-07-21 01:05 | XMS_ITS | Encounter Summary ---
:1960 [place] [address] Care Team Providers Name Role Phone Belem Mckeon MD Primary Care Provider Encounter Details Date Type Department Care Team Description 12/13/2017 Hospital Encounter Radiology Library at AdrianManuela MD [facility] [place] [address] [place] [address] [phone] (Wo rk) Social History Tobacco Use Types [...] Diagnosis Comme nts FILM LIBRARY Routine 12/13/2017 12:05 AM Results for this STORAGE ONLY DX EDT procedure ar e in SPINE the results section. documented in this encounter Results Film Library- Storage Only DX Spine (12/13/2017 12:05 AM EDT) Specimen (Source) Anatomical Location Collection Method / Collectio n Time Received Time / Laterality Volume Narrative RAD - 02/16/2018 2:16 PM EDT This exam is for storage only and is aut o-finalizing. Shivam Kohler MD IMG FILM LIBRARY ORDERABLES Performing Organization Address City/State/ZIP Code Phon e Number RAD [place], [place] documented in this encounter Visit Diagnoses Not on filedocumented in this encounter Care Teams Deputy Bailiff Relationship Specialty Start Date End Date Belem Mckeon MD PCP - General General Internal Medicine 07/14/[address] [place] [address] documented as of this encounter
--- OUTSIDE RECORDS SUMMARY | 2022-07-21 01:05 | XMS_ITS | Encounter Summary ---
:1960 [place] [address] Care Team Providers Name Role Phone Desire Augustin APRN Primary Care Provider Reason for Visit Reason Onset Date Comments Pre Procedure Call 03/12/2018 Encounter Details Date Type Department Care Team Description 03/12/2018 Telephone Pain Management at [facility], [place] [address] Social History Tobacco Use Types Packs/Day Years Used Date Current Every Day Smoker Cigarettes 1 Smokeless Tobacco: Never Used Sex Assigned at Date Recorded Not on file documented as of this encounter Miscellaneous Notes Telephone Encounter - [facility], [facility] - 03/12/2018 1:08 PM EDT uD Mojica :1960 Message left: I left a message on answering machine Mr. Mojica at 1:08 PM regarding his upcoming Left lumbar epidural steroid injection with Dr. Eligio Mclean, DO. Message included the followin. Patient instructed to arrive at 1:45 (30 minutes prior to procedure start time) on 03/14/2018 (date of procedure) with their feeder driver. 2. Following instructions left in the message: [...] body within the last two weeks? GERTRUDIS Pena documented in this encounter Plan of Treatment Not on filedocumented as of this encounter Visit Diagnoses Not on filedocumented in this encounter Care Teams Manager Registration Relationship Specialty Start Date End Date Desire Augustin APRN PCP - General Family Medicine 02/19/18 08/12/[address] [place] [address] documented as of this encounter
--- OUTSIDE RECORDS SUMMARY | 2022-07-21 01:05 | XMS_ITS | Encounter Summary ---
:1960 Author Organization [facility] [place] [address] Care Team Providers Name Role Phone Desire Augustin APRN Primary Care Provider Reason for Referral Consultation (Routine) - Closed Specialty Diagnoses / Procedures Referred By Contact Refer red To Contact Pain Management Diagnoses Spinal stenosis of lumbar region with neurogenic claudication Shivam Kohler MD [facility] Procedures PRO INJECTION DX/THER SBST INTRLMNR LMBR/SAC W/[place] [address] [place] [address] Fax: Referral ID Status Reason Start Date Expiration Date Visits V isits Requested Authorized [id number] Closed Consult, 02/19/2018 02/19/2019 1 1 Test & Treat Reason for Visit Reason Comments Back Pain Left Leg Pain mostly Right Leg Pain Consultation (Routine) - Closed Specialty Diagnoses / Procedures Referred By Contact Refer red To Contact Orthopaedics Diagnoses Lumbar disc herniation/ sciatica/ failed PT/ MRI 01/22/18 & XR 12/13/17 @ [facility] Desire Augustin APRN [facility] [address] [place] [place] [address] [address] [place] [address] Referral ID Status Reason Start Date Expiration Date Visits V isits Requested Authorized [id number] Closed Consult, 02/15/2018 02/15/2019 1 1 Test & Treat Connection Center Encounter Details Date Type Department Care Team Description 02/19/2018 Office Visit [facility] Center at Shivam Kohler Spinal s tenosis of [place] lumbar region with [facility] aide [address] [place], [place] [facility] [address] [place] [address] [phone] Social History Tobacco Use Types Packs/Day Years Used Date Current Every Day Smoker Cigarettes 1 Smokeless Tobacco: Never Used Sex Assigned at Date Recorded Not on file documented as of this encounter Last Filed Vital Signs Vital Sign Reading Time Taken Comments Blood Pressure 161/105 02/19/2018 8:16 AM EDT Pulse - - Temperature - - Respiratory Rate - - Oxygen Saturation - - Inhaled Oxygen Concentration - - Weight 108.2 kg (238 lb 9.6 oz) 02/19/2018 8:16 AM EDT Height 188 cm (6' 2) 02/19/2018 8:16 AM EDT Body Mass Index 30.63 02/19/2018 8:16 AM EDT documented in this encounter Progress Notes Shivam Kohler MD - 02/19/2018 8:20 AM EDT Images from the original note were not included. Shivam Kohler MD MS FAOA Department of Orthopaedics [facility] February 19, 2018 Mr. Mojica is a 57-year-old gentleman seen today in the [facility] in consultation from Desire Augustin APRN. This gentleman is accompanied by his . He seen and evaluated for what appears to be chronic low back pain left buttock pain occasionally left thigh and posterior Leg pain numbness and tin gling in all toes left foot. Left leg seems to be the predominant problem worse towards the end of the day with prolonged standing or walking. Right leg is minimally involved. Symptoms have been present for over 8 months without specific known etiology or injury. Night pain is an occasional problem but not a predominant symptom. This gentleman has had substantial medical management including varying medications such as gabapentin, Lyrica, Flexeril, Mobic, all without relief. Physical therapy made his symptoms worse. healthcare translator is provided some relief. He has not had any injections. Ice seemsto help. His review of systems is negative for GI, , constitutional symptoms. He reports a remote surgery in the right L4-5 by laser technique in [place]. Allergies include reaction to penicillin. Height is 6 feet 2 inches, weight 238 pounds with a body mass index of 30.63. Pain over the past week described as worst imaginable. He smokes a pack of cigarettes per day as does his . In addition to his smoking is hypertension elevated lipids chronic right hip pain hypothyroidism and others. He works part-time at [employer]. This is a pleasant gentleman who moves easily about the office. His gait is normal. He can toe and heel walk without weakness. On inspection from the back he has a level pelvis and straight spine with no tenderness to palpation. Sciatic notches are nontender. Spinal alignment is normal. Skin color and temperature are normal. His lower extremity neurologic exam his reflexes are normal at the knees and ankles with negative Babinski's and clonus. Is very reassuring. Motor exam is completely normal. Sensation slightly diminished to light touch in the left lateral leg and left medial foot. Straight leg raise test is negative. Lumbar MRI is available to review from 01/22/18. This demonstrates multilevel degenerative changes. Patient reports having prior surgery L4-L5 right side by laser technique in in [place]. I am unable to find imaging evidence of that. He does have mild left lateral recess stenosis seen on axial T2 image 14 series 6 at the L4-L5 level and a hypertrophic left L5-S1 facets seen on axial T2 image 10series 6 both of which provide mild to moderate compression of the respective nerves. The L4 and L5 neural foramen on the left mild to moderately compressed as well. There is not one specific anatomic finding with a high degree of confidence that would explain all his presenting symptoms. Impression: Chronic low back and left leg pain possibly in the L5 or S1 distribution with mild to moderate lateral recess narrowing and foraminal narrowing the respective nerve roots. Recommendation: Reviewed these findings including the imaging studies with the patient and his .First discussed smoking cessation. I recommended and he is agreed to referral to the anesthesia painclinic for series of up to 3 lumbar epidural steroid injections in the low lumbar spine for both diagnostic and therapeutic purposes. If he does not have any substantial relief I would think surgical options would not be available. With substantial overall improvement even if temporary from the injections operative intervention may be reasonable for left-sided L4-5 L5-S1 decompression. If the injections are not helpful make an clinic referral for his chronic pain. If he does return he needs to complete a health survey. Trust[employer] voice recognition used for this diatation and I apologize for any mis-wording. Shivam Kohler MD MS FAOA Department of Orthopaedic Surgery [facility] [address] Regulatory Manager of Orthopaedic Surgery [facility] [phone] [email or web address] documented in this encounter Plan of Treatment Scheduled Referrals Name Type Priority Associated Diagnoses Order S chedule Referral to Pain Outpatient Referral Routine Spinal stenosis o f Ordered: Clinic lumbar region with 8 neurogenic claudication documented as of this encounter Visit Diagnoses Diagnosis Spinal stenosis of lumbar region with ne urogenic claudication Spinal stenosis, lumbar region, with aide rogenic claudication documented in this encounter Care Teams Sanforizer Relationship Specialty Start Date End Date Desire Augustin APRN PCP - General Family Medicine 02/19/18 08/12/[address] [place] [place] [address] documented as of this encounter
--- OUTSIDE RECORDS SUMMARY | 2022-07-21 01:05 | XMS_ITS | Encounter Summary ---
:1960 Author Organization [place] [address] Care Team Providers Name Role Phone Desire Augustin APRN Primary Care Provider Encounter Details Date Type Department Care Team Description 03/05/2019 Telephone Pain Management at [facility] [place], [place] [address] Social History Tobacco Use Types Packs/Day Years Used Date Current Every Day Smoker Cigarettes 1 Smokeless Tobacco: Never Used Sex Assigned at Date Recorded Not on file documented as of this encounter Miscellaneous Notes Telephone Encounter - Irma Hogue RN - 03/05/2019 1:17 PM EDT Du's called and stated that Du's pain has gotten worse and that Nannette had told themto call if it had. I told her that Nannette was not here today, but I would forward the message to her and that they should call the PCP and let them know what is going on. Du's said she would. documented in this encounter Plan of Treatment Not on filedocumented as of this encounter Visit Diagnoses Not on filedocumented in this encounter Care Teams Heavy Equipment Service Technician Relationship Specialty Start Date End Date Desire Augustin APRN PCP - General Family Medicine 02/19/18 08/12/19 [address] [place] [address] documented as of this encounter
--- OUTSIDE RECORDS SUMMARY | 2022-07-21 01:05 | XMS_ITS | Encounter Summary ---
:1960 Author Organization [facility] [address] Care Team Providers Name Role Phone Desire Augustin APRN Primary Care Provider Reason for Visit Reason Comments Back Pain Pain Management Consultation (Routine) - Closed Specialty Diagnoses / Procedures Referred By Contact Refer red To Contact Pain Management Diagnoses Lumbago with sciatica, right side LOW BACK PAIN, LUMBAGO W/SCIATICA PAIN- called for imaging 02/26 855 Desire Augustin APRN [facility] [address] [place] [place] [id number] [place] [phone] Fax: Referral ID Status Reason Start Date Expiration Date Visits V isits Requested Authorized [id number] Closed Consult, 02/25/2019 02/25/2020 1 1 [facility] Encounter Details Date Type Department Care Team Description 02/28/2019 Office Visit Pain Management at [facility] Spin al stenosis, [place] 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 unspecified spinal [facility] [address] [facility] [id number] [place] [address] [phone] Social History Tobacco Use Types Packs/Day Years Used Date Current Every Day Smoker Cigarettes 1 Smokeless Tobacco: Never Used Sex Assigned at Date Recorded Not on file documented as of this encounter Last Filed Vital Signs Vital Sign Reading Time Taken Comments Blood Pressure 146/104 02/28/2019 9:17 AM EDT Pulse 72 02/28/2019 9:17 AM EDT Temperature - - Respiratory Rate - - Oxygen Saturation 96% 02/28/2019 9:17 AM EDT Inhaled Oxygen Concentration - - Weight 121.4 kg (267 lb 9.6 oz) 02/28/2019 9:17 AM EDT Height 185.4 cm (6' 1) 02/28/2019 9:17 AM EDT Body Mass Index 35.31 02/28/2019 9:17 AM EDT documented in this encounter Progress Notes Nannette Reid APRN - 02/28/2019 9:30 AM EDT Images from the original note were not included. [facility] [place] [address] Phone: PAIN MANAGEMENT CONSULTATION NOTE DATE OF VISIT 02/28/2019 Patient Du Mojica 1960 REFERRING PROVIDER [place] [address] PRIMARY CARE PROVIDER Desire Augustin APRN CHIEF COMPLAINT: Du Mojica is a 58 y.o.male with right sided back and leg pain, who is seen in consultation at the request of [place] [address]. for evaluation, recommendations, and management.The history is obtained from the patient, and I have reviewed medical records provided by the referring physician and located in the electronic medical record to fill in gaps in the patient's recollection of events, treatments and outcomes. Goal of visit: to discuss treatment for newer onset of right back pain and anterior lateral leg pain HPI Seen previously by Dr Kohler in 2018 . Per his note: Mr. Mojica is a 57-year-old gentleman seen [...] relief. Physical therapy made his symptoms worse. 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 He has not had any injections. Ice seemsto help. His review of systems is negative for GI, , constitutional symptoms. He reports a remote surgery in the right L4-5 by laser technique in [place]. Recommendation: Reviewed these findings including the imaging [...] an clinic referral for his chronic pain. ?? Interval history: The patient is here accompanied by his . He was previously seen here for procedures only. He was seen by Dr. Norton in 2018 for his left- sided symptoms. Subsequent to this, he was seen by Dr. diallo at [facility] neurology and neurosurgery who performed surgery. The notes are not available but by report of the patient and his sound like they may have been a foraminotomy. Since then his left-sided symptoms have improved and the patient states that Dr. diallo had asked him if he had any right-sided symptoms because that side looked even worse. At that time the patient did not have right-sided symptoms he states but at other times in the visit he states that he did have concurrent right-sided low back pain. His symptoms of leg pain which traveled from the right side low back around to the lateral hip and down the lateral and anterior thigh to the kneecap and then down the tolentino to the dorsum of the foot have been going on for 7 weeks. He has been [facility] therapy but did not go because it had a poor experience the last time where the therapist actually made him hurt worse. He has been using NSAIDs and has developed a GERD and his primary care provider will no longer provide him with any NSAIDs because of this. He has since started on Prilosec. Hehas also tried an oral steroid which was helpful. He continues to smoke half pack a day and we had arather lengthy discussion about this today. He has not had any Sonia therapy. 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 Most recent MRI or Xray:01/22/2018 [facility] MRI lumbar spine PAIN ASSESSMENT: Description: Muscle spasms and a sciatica type pain on the right, also has groin pain 9 tearing flesh off bones, gets Worse as the day goes on) Weakness, numbness, tingling:numbness in bilateral feet, dorsum and all toes Saddle Anesthesia: no Other associated symptoms: back feel like hips are disconnected from the rest of the body Alleviating factors: steroid, rest, sitting helps a bit Aggravating factors standing, working Ave past week: 5- myD-H Pain 03/11/2018 VR12 - Physical Summary Component 18.75 VR12 - Mental Component Summary 50.56 MODEMS Expectation 80 Family History of Substance Abuse (Male) 0 Personal History of Substance Abuse(Male) 0 Age 0 History of Preadolescent sexual abuse(Male) 0 Psychological Disease 0 ORT Total Scores (Male) 0 BPI Severity Score 7.25 BPI Interference Score 9 FUNCTIONAL HISTORY Work: unemployed, laid off just before surgery ( was at [employer]) Interference with activities/ADL: has to take frequent breaks Exercise/activities: minimal How do you spend your day? House chores, yard work CURRENT THERAPIES: Has a PT referral, did not go yet ( last PT hurt him) cyclobenzeprine at bedtime PAST THERAPIES: Acetaminophen:yes NSAID:no reflux Opioids:no Storage of opioids:NA Antidepressants: no Anticonvulsants: lyrica in the past, gabapentin, nausea Muscle relaxants: cyclobenzeprine Topicals:lidocaine cream Herbal supplements/vitamins:no Injections: ist helpful, second no help Surgery: for left sided sciaitica Physical Therapy: planned, previous bad experience TENS: no Acupuncture:no Chiropractic:yes, Was helpful for a short period of time Massage: no CBT,Meditation/Imagery:no Yoga/Pardeep Chi/ Movement:no Marijuana:no Other: oral steroid with good results until done REVIEW OF SYSTEMS: Constitutional: denies fever, chills, cough, signs of infection, weight changes, fatigue HEENT: Denies headaches, blurry/limited vision, photophobia, difficulty hearing, Cardiac:denies chest pain or pressure, lower extremity edema Lungs: denies SOB on exertion GI: denies constipation or diarrhea, black tarry stool, loss of control; + GERD : denies frequency, urgency, hesitation, or incontinence Neuro: denies dizziness, numbness, seizures, tremors Muscle skeletal: denies use of ambulatory aide, falls Skin: denies open sores or rashes Psychological/Mood: positive Sleep: some interruption from muscle spasms RELEVANT SOCIAL HISTORY: Lives with: [employer] Alcohol: present and past: no Illegal/prescription drug misuse past/present:no Are you now or in past received methadone or suboxone (buprenorphine) for substance abuse? no Ever participated in drug or alcohol rehabilitation program? no Share your pain medications or accepted pain medications from family/friends?no History of incarceration?no Addiction Behaviors Checklist (NA = not assessed) Addiction behaviors--since last visit 1. Patient used illicit drugs or evidences problem drinking* no 2. Patient has hoarded meds no 3. Patient used more narcotic than prescribed no 4. Patient ran out of meds early no 5. Patient has increased use of narcotics no 6. Patient used analgesics PRN when prescription is for time contingent use no 7. Patient received narcotics from more than one provider no 8. Patient bought meds on the streets no Addiction behaviors--within current visit 1. Patient appears sedated or confused (e.g., slurred speech, unresponsive) no 2. Patient expresses worries about addiction no 3. Patient expressed a strong preference for a specific type of analgesic or a specific route of administration no 4. Patient expresses concern about future availability of narcotic no 5. Patient reports worsened relationships with family no 6. Patient misrepresented analgesic prescription or use no 7. Patient indicated she or he ?needs? or ?must have? analgesic meds no 8. Discussion of analgesic meds was the predominant issue of visit no 9. Patient exhibited lack of interest in rehab or self-management no 10. Patient reports minimal/inadequate relief from narcotic analgesic no 11. Patient indicated difficulty with using medication agreement no Other 1. Significant others express concern over patient???s use of analgesics no ABC Score: __0____ Score of ?3 indicates possible inappropriate opioid use and should flag for further examination of specific signs of misuse and more careful patient monitoring (i.e., urine screening, pill counts, removal of opioid). MEDICATIONS [facility] Prescription Monitoring Program was checked and no concerns were identified. Medications 05/20/18 1318 Medication Sig Taking? levothyroxine (SYNTHROID) 100 mcg Tablet take 1 tablet by mouth every morning ;ON EMPTY STOMACH,AT LEAST 30-60 MINUTES BEFORE FOOD aspirin 81 mg Tablet, Delayed Release (E.C.) Take 1 tablet by mouth daily. atorvastatin (LIPITOR) 10 mg Tablet Take 1 tablet by mouth daily. cyclobenzaprine (FLEXERIL) 10 mg Tablet Take 1 tablet by mouth 3 times daily. losartan (COZAAR) 100 mg Tablet Take 1 tablet by mouth daily. ADVERSE DRUG REACTIONS Allergies as of 02/28/2019 - Review Complete 05/20/2018 Allergen Reaction Noted ??? Penicillins 02/19/2018 MEDICAL HISTORY Past Medical History: Diagnosis Date ??? Hyperlipidemia ??? Hypertension ??? Spinal stenosis 02/19/2018 L4-5, L5-S1 lateral recess and neuroforamen Remote surgery right L4-5 1989' Laser surgery in [place] SURGICAL HISTORY Past Surgical History: Procedure Laterality Date ??? SPINE SURGERY FAMILY HISTORY No family history on file. Opioid Risk Tool Female Male 1. Family history of Substance Abuse Alcohol [] 1 [x] 3 Illegal Drugs [] 2 [] 3 Prescription Drugs [] 4 [] 4 2. Personal History of Substance Abuse Alcohol [] 3 [] 3 Illegal Drugs [] 4 [] 4 Prescription Drugs [] 5 [] 5 3. Age (buster box if 16-45) [] 1 [] 1 4. History of Preadolescent Sexual Abuse [] 3 [] 0 5. Psychological Disease Attention Deficit Disorder, Obsessive Compulsive D/o, Bipolar, Schizophrenia [] 2 [] 2 Depression [] 1 [] 1 TOTAL: 3 Comments about ORT in relation to this patient: Opioid Risk Category: low risk 0-3 PHYSICAL EXAMINATION There were no vitals filed for this visit. There is no height or weight on file to calculate BMI. There were no vitals taken for this visit. No flowsheet data found. Appearance/ Behavior Well groomed, good eye contact, relaxed, cooperative, normal speech, no acute distress, no involuntary movements Eyes Sclera anicteric, conjunctiva clear. ENT Hearing grossly intact Lungs CTA bilaterally Cardiovascular Reg RR without murmur, Skin No rash, asymmetric hair loss, bruises, scars, swelling Musckuloskeletal Inspection/Palpation/ Range of Motion/Facet Loading maneuvers Gait: Nonantalgic Assistive device: None Heel, toe, heel to toe: Without difficulty Inspection: good alignment, no excessive curvature, shoulder and hip levels equal bilaterally; no skin breakdown Palpation: Tender in the low back, no spasm noted, positive Kemps maneuver to the right. Normal strength, sensation, reflexes. Negative sacroiliac joint dysfunction tests. Femoral tension test producesback pain but no leg symptoms. Neuro Motor Strength Segment Muscle Action Bilateral Results C5 Detoid Shoulder abduction 5/5 C5 Biceps Elbow flexion 5/5 C6 Extensor carpi radialis Wrist extension 5/5 C7 Triceps Elbow extension 5/5 C8, T1 Hand intrinsics Grasp 5/5 L2-5, S 1 Gluteus medius Hip Adduction 5/5 L4-5, S1 Gluteus medius Hip Abduction 5/5 L2 Iliopsoas Hip flexion 5/5 L3 Quadriceps Knee extension 5/5 L4 Tibialis anterior Ankle Dorsiflexion 5/5 L5 Extensor hallucis Great toe extension 5/5 S1 Gastrocnemius Ankle Plantar flexion 5/5 Reflexes: Segment Tendon Bilateral C5 Biceps 2+ C6 Brachioradialis 2+ C7 Triceps 2+ Upper Conrad Neg L3-4 Patella 2+ S1 Ankle 2+ Lower Babinski Down going Clonus Neg Sensory Exam: No sensory deficits noted in cervical, thoracic, lumbar dermatomes Vascular: warm to touch + 2 pedal pulses ASSESSMENT . The patient has a known history of degenerative disc disease and spinal stenosis with particular emphasis with right-sided foraminal stenosis at L3-4 and L4-5 per his previous MRI done prior to his [address] diallo. He ranks his leg and his back symptoms the same. PLAN/RECOMMENDATIONS First and foremost I discussed again the need to stop smoking tobacco. I reiterated with both the patient and his the relationship between disc degeneration and back pain as well as the relationship between healing postoperatively and back pain and tobacco and finally the relationship between tobacco use and his GERD symptoms. He remains noncommittal regarding cessation although he did quit for 3 weeks in the past and then restarted. I discussed with him that unfortunately I really do not have much to offer him right now because I would not give him another NSAID or steroid because of his GERD symptoms. He cannot have a new injection, steroid injection without a new MRI and he cannot really have a new MRI with a normal exam even postoperatively without doing some physical therapy first. He has a referral to physical therapy and Igiven him a copy of the Drew Scott book treat your own back. I recommended that he contact hislocal therapist to see if they can do Sonia and if not I gave him a list of providers in both [facility] and [place] as well as recommended that previously I have been able to find some help for gal morgan in the [facility] by sending patients to [facility] where there is a Sonia trainedtherapist. We have mutually discussed that he should follow-up with me by telephone if her symptoms change as well as after physical therapy if they have not improved and at that point time I will order a new MRI and review with him and discuss whether or not he would be a candidate for injection. Regarding his reports of cramps in the legs and feet I have demonstrated some stretching and given rationale as to why to stretch and for how long. I reviewed the signs and symptoms of cauda equina syndrome with him and reasons to present sooner rather than later either to us here at [facility] in the pain and spine center or at an emergency room. We talked about various different muscle relaxant but he does find the cyclobenzaprine helpful. We also talked about various neuromodulators but he either cannot afford them or did not like the way he felt on them and as I said he is not a candidate for NSAIDs or steroids orally currently. I answered all of his and his 's questions today. Du Mojica had the opportunity to ask questions and indicated that all questions were answered to his satisfaction. Nannette Reid MS IMPLEMENTATION COORDINATOR-BC, DOCKETING SPECIALIST Nurse Practitioner [facility] documented in this encounter Plan of Treatment Not on filedocumented as of this encounter Visit Diagnoses Diagnosis Spinal stenosis, unspecified spinal harriet on documented in this encounter Care Teams [employer] Combination Teacher Relationship Specialty Start Date End Date Desire Augustin APRN PCP - General Family Medicine 02/19/18 08/12/[address] [place] [address] documented as of this encounter
--- OUTSIDE RECORDS SUMMARY | 2022-07-21 01:05 | XMS_ITS | Encounter Summary ---
:1960 Author Organization [facility] [place] [address] Care Team Providers Name Role Phone Desire Augustin APRN Primary Care Provider Encounter Details Date Type Department Care Team Description 03/12/2018 Telephone Pain Management at [facility] Andree Sue, [place] [address] Social History Tobacco Use Types Packs/Day Years Used Date Current Every Day Smoker Cigarettes 1 Smokeless Tobacco: Never Used Sex Assigned at Date Recorded Not on file documented as of this encounter Miscellaneous Notes Telephone Encounter - Andree Sue, SAP TRAINER - 03/12/2018 4:47 PM EDT Du Mojica :1960 Contact made with patient: I spoke to Mr. Mojica at 4:47 PM regarding his upcoming Neither lumbar epidural steroid injection scheduled on 03-14 (date) scheduled at 18 (time) with Dr. Eligio Mclean DO. Medication and Allergy reconciliation: 1. Changes were made in the telephone encounter per patient; marked as reviewed, and closed. 2. Patient confirmed no IVP dye allergy. 3. Have you had any steroid injections anywhere in your body within the last two weeks? no Arrival time: The patient was instructed to arrive at 1:45 (30 minutes prior to procedure start time - 60 minutes prior for RF patients with a pacemaker) on 03-14- (date of procedure). Supervisor Elementary Education: The patient was reminded that they need to have a school bus driver/mechanic accompany them to his procedure who will remain onsite. Antibiotics/Skin assessment/Illness symptoms/Pain level assessment : 1. The patient confirmed that he is not taking antibiotics at this time. 2. The patient confirmed that he does not have any rashes, blisters, or skin breakdown on their body. 3. The patient confirmed that he does not have any active infections. 4. The patient confirmed that he does not have any symptoms of illness: fever, chills, cold, flu, nausea, vomiting. 5. The patient confirmed that he isstill experiencing significant pain. (Significant pain is definedas interfering with performing ADL.) Pain and Anti-anxiety Medications: 1. Nerve Block Procedure Patients: Patient was instructed NOT to take their pain medications on the day of the procedure and anti-anxiety medications are part of their daily medication regiment; they can and should continue taking that medication. 2. All Other Procedure Patients: The patient was instructed that if they take daily pain or anti-anxiety medications, they can and should continue taking on the day of the procedure. Does patient have history of any diagnosed bleeding disorders: No Anticoagulants: No NSAIDs: Does the patient take Aspirin/ASA? Yes The patient confirmed that he discontinued taking Aspirin on 03-13-18 (date). Does the patient take an NSAID? No Diabetic instructions: Patient was advised to inform their PCP regarding safe fasting and the NPO requirements for their upcoming procedure and given the Pain Management Center Nurse Triage Line . Implant: Patient has pacemaker/defibrillator: No Prior to checking in at [employer] Waste Management Technician, please be sure to empty your bladder. Patient confirmed understanding that if they do not follow the above their instructions, their procedure is likely to be cancelled. Andree Sue LPN documented in this encounter Plan of Treatment Not on filedocumented as of this encounter Visit Diagnoses Not on filedocumented in this encounter Care Teams Yacht Rigger Relationship Specialty Start Date End Date Desire Augustin APRN PCP - General Family Medicine 02/19/18 08/12/[address] [place] [address] documented as of this encounter
--- OUTSIDE RECORDS SUMMARY | 2022-07-21 01:05 | XMS_ITS | Encounter Summary ---
:1960 Author Organization [facility] [place] [address] Care Team Providers Name Role Phone Price Kilpatrick DO Primary Care Provider Encounter Details Date Type Department Care Team Description 09/15/2019 Procedure visit Maxillofacial Surgery Sergio Medina [place] [facility] [place] Acute periodont[place] [facility] [place] [address] [place], [place] [phone] [id number] Social History Tobacco Use Types Packs/Day Years Used Date Current Every Day Smoker Cigarettes 1 20 Smokeless Tobacco: Never Used Alcohol Use Standard Drinks/Week Comments Not Currently 0 (1 standard drink = 0.6 oz pure alcoho l) Sex Assigned at Date Recorded Not on file documented as of this encounter Patient Instructions Patient InstructionsToTori burnett Peg - 09/15/2019 3:00 PM EST On the Day of Surgery: DO NOT rinse your mouth, smoke, or use a straw when drinking. Any of these could cause you to bleed more. You should remain at home, rest, and avoid alcoholic beverages. Discomfort: It is not uncommon for you to have some discomfort following a surgical procedure. This discomfort may last for three days or more. Pain relievers such as ibuprofen or Tylenol may be taken - 2 tablets every 3 to 4 hours as needed. If a narcotic is prescribed, take this only as needed. Narcotic drugs may cause nausea. DO NOT take them on an empty stomach, and DO NOT drive or consume alcohol while on narcotics. If prescribed Vicodin, usual dosage is 1- 2 tablets every 4-6 hours as needed for pain. Total daily dosage SHOULD NOT EXCEED 8 tablets. Other discomforts you may experience include:slight earache, sore throat, numbness or tingling in the lips or chin, aches in other teeth, and tightness of the jaw muscles. Bleeding: It is normal for the extraction site to bleed post-operatively. If bleeding continues, place gauze directly over the socket and bite down gently, but firmly, for 20 minutes. Repeat this process as needed. If bleeding is heavy, keep head elevated or sit upright, avoid exercise, hot liquids,smoking, and drinking from straws. If the bleeding does not stop with pressure, try a lukewarm, damp tea bag in place of the gauze foranother 20 minutes. The tea bag will help to form blood clots and stop the bleeding. If bleeding continues, call your doctor. Swelling: To reduce immediate swelling after your procedure, apply an ice pack, with pressure, to the face over the area of the procedure. Ice should be applied for 15-20 minutes at a time, for the first 24 hours. After 24 hours, a moist warm compress may be helpful. Most swelling will occur within 24-48 hours following the procedure. Mouth Rinse: Vigorous mouth washing may cause bleeding to begin again if clots are not formed. DO NOT RINSE on the day of surgery. Begin rinsing one day after the procedure very gently with warm salt water (1/2 teaspoon per 8 oz. warm water). Continue rinsing 3-6 times a day for several days. This will keep surgical sites clean and will help with healing. Diet: It is best to eat light, soft foods, and drink plenty of liquids following a surgical procedure. Foods like, yogurt, pasta, eggs, soups, and ice cream are good choices. Avoid hot liquids for 24 hours after tooth extraction. Avoid foods that are difficult to chew. Once chewing becomes easier, youmay return to your normal diet. In General: If stitches are used, they will dissolve or unravel in about three days to one week. Avoid strenuous exercise, such as jogging and contact sports for at least one week following surgery. Swelling is usually most extensive 24- 48 hours following surgery, and usually takes 4-5 days to subside. Sockets can take 4-6 weeks to heal, and often heal from the inside out. It may take 10-14 days before you feel like your normal self again. Dr. Medina can be reached at [phone] between the hours of 5PM-10PM and on weekends. During business hours 8am-5pm M-F please call our office at [phone]. documented in this encounter Progress Notes Sergio Medina MD - 09/15/2019 3:00 PM EST Clinic Extraction Procedure of Single Tooth Surgical Procedure: Du Mojica presents for the scheduled extraction of tooth # 32 with local anesthesia. The patient was brought to the office and the treatment plan, history, and consent was reviewed. Indications for procedure: After appropriate topical and local anesthesia was administered the patient underwent the extraction. SURGICAL EXTRACTION requiring incision of surrounding gingiva and reflection of mucoperiosteum flap and a distal buccal position in a lingual nerve sparing fashion together with removal of bone from the occlusal, distal, buccal area and sectioning of the tooth to facilitate its removal. Multiple 3-0 chromic sutures were used. There was no evidence of injury to adjacent teeth, nerves or sinuses and hemostasis was obtained. The patient tolerated the procedure well, a complete set of instructions both written and verbal were reviewed with the patient. They were instructed to contact the clinic in the interm if there was any question or concern during the post operative period. Local Anesthesia: 2cc's 4% Septocaine with 1:100k epi given locally 2cc's and 2% Lidocaine with 1:100k epi Postop Medications: Vicodin 5/325 # 15, along with clindamycin 300 mg 3 times daily for a week, Peridex, Motrin prescription 600 mg. Use OTC NSAID/Tylenol first being mindful of the Tylenol limits. Follow-up: prn. Patient is aware of increased pain and problems with continued smoking while healing. Sergio Medina MD , DMD, FACS documented in this encounter Plan of Treatment Not on filedocumented as of this encounter Visit Diagnoses Diagnosis Impacted tooth Disturbances in tooth eruption Acute periodontitis documented in this encounter Care Teams Bullet Assembly Press Operator Relationship Specialty Start Date End Date Price Kilpatrick DO PCP - General Family Medicine 08/13/[address] [place] [address] documented as of this encounter
--- OUTSIDE RECORDS SUMMARY | 2022-07-21 01:05 | XMS_ITS | Encounter Summary ---
:1960 Author Organization [place] [address] Care Team Providers Name Role Phone Radha Augustinashish Minor APRN Primary Care Provider Encounter Details Date Type Department Care Team Description 06/03/2019 Anesthesia [place] [facility] [place], [facility] [place] [address] [facility] [phone] DR ANESTHESIOLOGY [place], [place] [address] Anesthesia Record Procedure Summary Procedure Name Responsible Anesthesia Start Anesthesia Stop Time Anesthesiologist Time EGD WITH BIOPSY Chayito Garcia MD 06/03/19 0902 06/03/19 09 17 (WRVU 2.49) (N/A Trunk) Events Date Time Event Comment 06/03/2019 0836 0902 AN Verify 0902 Start 0902 An Start Data 0905 An Induction 0905 Anesthesia Ready 0917 an stop data 0917 Recovery or ICU Handoff Patient care was transferred to the destination unit staff after review of the patient's medica l history, current anesthetic/surgi soni status and plan, according to the Provider Handoff Checklist. 0917 Stop Name Total IV Lidocaine 100 mg Propofol 100 mg Propofol INF 288.48 mg lactated ringers infusion 0 mL Agents Name O2 Air N2O O2 Auxiliary Flowmeter 1 Blood No blood administrations on file. Lines, Drains, and Airways Type Details Placement Removal PIV 06/03/19; 0849; metacarpal 06/03/19 0849 by Oliv ier, 06/03/19 1005 by vein (top of hand), right; JOSE Ford Suzanne E, [id number] catheter RN system; 20 gauge; Ramez Bliss RN; tolerated well, appears comfortable; 06/03/19; 1005 documented in this encounter Social History Tobacco Use Types Packs/Day Years Used Date Current Every Day Smoker Cigarettes 1 Smokeless Tobacco: Never Used Alcohol Use Standard Drinks/Week Comments Not Currently 0 (1 standard drink = 0.6 oz pure alcoho l) Sex Assigned at Date Recorded Not on file documented as of this encounter OR Notes Anesthesia Postprocedure Evaluation - Chayito Garcia MD - 06/03/2019 9:34 AM EDT Department of Anesthesiology Post-procedure Note Patient: Du Mojica Procedure Summary Date: 06/03/19 Room / Location: [facility] ENDO 2 / [facility] ENDOSCOPY Anesthesia Start: 901 Anesthesia Stop: 916 Procedure: EGD WITH BIOPSY (WRVU 2.49) (N/A Trunk) Diagnosis: Gastroesophageal reflux disease, esophagitis presence not specified (gerd) Surgeon: Jordin Matta MD Responsible Provider: Chayito Garcia MD Anesthesia Type: MAC ASA Status: 2 All Anesthesia Providers: Anesthesiologist: Chayito Garcia MD ASSISTANT HEAD CASHIER: Gilberto Ramon CRNA Vitals Value Taken Time BP 111/79 06/03/2019 9:30 AM Temp Pulse Resp 16 06/03/2019 9:20 AM SpO2 95 % 06/03/2019 9:33 AM Pain Level 0 06/03/2019 9:20 AM Vitals shown include unvalidated device data. Patient Location: PACU/[facility] Level of Consciousness: Awake and Alert Pain Management: Satisfactory Analgesia PONV: None Cardiovascular Status: At Baseline and Hemodynamically Stable Respiratory Status: At Baseline and Room Air Postoperative Fluid Status: Intravascular EUvolemia Possible Anesthetic Complications: NONE apparent at time of evaluation Final Primary Anesthesia Type: MAC (The anesthetic type performed was the same as planned.) Comments: Chayito Garcia MD Anesthesia Preprocedure Evaluation - Chayito Garcia MD - 05/30/2019 4:53 PM EDT Images from the original note were not included. Pre-Anesthesia Evaluation for: Du Mojica a 58 y.o. male. Procedure(s): EGD, UPPER GI ENDOSCOPY Patient Active Problem List Diagnosis ??? Spinal stenosis L4-5, L5-S1 lateral recess and neuroforamen Remote surgery right L4-5 Laser surgery in [place] Past Medical History: Diagnosis Date ??? Hyperlipidemia ??? Hypertension ??? Spinal stenosis 02/19/2018 L4-5, L5-S1 lateral recess and neuroforamen Remote surgery right L4-5 Laser surgery in [place] Past Surgical History: Procedure Laterality Date ??? SPINE SURGERY Social History Tobacco Use ??? Smoking status: Current Every Day Smoker Packs/day: 1.00 Types: Cigarettes ??? Smokeless tobacco: Never Used Substance Use Topics ??? Alcohol use: Not on file Social History Substance and Sexual Activity Drug Use Not on file Allergies Allergen Reactions ??? Hydrochlorothiazide Other (See Comments) Water retention,could not pee ??? Lisinopril Itching ??? Penicillins Medications: MAR and/or home medications have been reviewed. Physical Exam: There were no vitals filed for this visit. There is no height or weight on file to calculate BMI. Airway Assessment: Mallampati: I TM distance: >3 FB Neck ROM: full Cardiovascular Assessment: Pulmonary Assessment: Dental Assessment: Misc Assessment: Anesthesia Plan: ASA 2 MAC, with a(n) intravenous induction 58 yo male with chronic pain (s/p lumbar spine surgery), gerd, presents for egd. 1ppd smoker. Plan MAC, [place] backup, with standard ASA monitors and adequate IV access. Region - Other Informed Consent: Anesthetic plan and risks discussed with patient and spouse. Plan discussed with ASSISTANT HEAD CASHIER and attending. PAT Clinic Note documented in this encounter Plan of Treatment Not on filedocumented as of this encounter Visit Diagnoses Not on filedocumented in this encounter Administered Medications Inactive Administered Medications - up to 3 most recent administrations Medication Order MAR Action Action Date Dose Rate Site lactated ringers infusion New Bag 06/03/2019 9:02 AM EDT 100 mL/hr, Intravenous, CONTINUOUS, Starting on Sun06/03/19 at 0845, Until Sun06/03/19 at 1005, Endoscopy (Day of Procedure) New Bag 06/03/2019 8:52 AM EDT 100 mL/hr 100 mL/hr lidocaine (PF) (XYLOCAINE) 100 mg/5 mL (2 %) Given 11/2018 9:05 AM EDT 100 mg injection PRN, Starting on Sun06/03/19 at 0905, Until Sun06/03/19 at 0917, Anesthesia Intra-op, Routine propofol (DIPRIVAN) 10 mg/mL bolus injection Given 11/2018 9:05 AM EDT 100 mg (Anesthesia) PRN, Starting on Sun06/03/19 at 0905, Until Sun06/03/19 at 0917, Anesthesia Intra-op propofol (DIPRIVAN) infusion New Bag 06/03/2019 9:05 AM 200 mcg/kg/min 144.2 mL/hr CONTINUOUS PRN, Starting on EDT e 06/03/19 at 0905, Until Sun06/03/19 at 0917, Anesthesia Intra-op, Routine documented in this encounter Care Teams Printer Repair Technician Relationship Specialty Start Date End Date Desire Augustin APRN PCP - General Family Medicine 02/19/18 08/12/[address] [place] [address] documented as of this encounter
--- OUTSIDE RECORDS SUMMARY | 2022-07-21 01:05 | XMS_ITS | Encounter Summary ---
:1960 Author Organization [facility] [place] [address] Care Team Providers Name Role Phone Desire Augustin APRN Primary Care Provider Reason for Referral Routine Exam (Routine) - Specialty Diagnoses / Procedures Referred By Contact Refer red To Contact Diagnoses Spinal stenosis of lumbar region with neurogenic claudication Jaron Larson MD Procedures Epidural steroid injection - [facility] [place] [address] Referral ID Status Reason Start Date Expiration Visits Visits Date Requested Authorized [id number] Specialty 05/20/2018 05/20/2019 1 1 Service Requested Reason for Visit Surgical (Routine) - Closed Specialty Diagnoses / Procedures Referred By Contact Refer red To Contact Pain Management Diagnoses Spinal stenosis, lumbar region, with neurogenic claudication series of up to 3 lumar epidural steroid injections for lateral recess stenosis left side L4-5, L5-S1 Shivam Kohler MD Gellis, Janice E, MD Procedures PRO INJECTION DX/THER SBST INTRLMNR LMBR/SAC W/IMG GDN PROCEDURE [facility] [place] [address] Fax: Referral ID Status Reason Start Date Expiration Date Visits Requ ested Visits Authorized [id number] Closed 05/20/2018 05/20/2019 1 1 Encounter Details Date Type Department Care Team Description 05/20/2018 Procedure visit Pain Management at Jaron Larson S tre[place] stenosis of [facility] lumbar region with [facility] [address] [place] [facility] [facility] [id number] [place] [address] [phone] Social History Tobacco Use Types Packs/Day Years Used Date Current Every Day Smoker Cigarettes 1 Smokeless Tobacco: Never Used Sex Assigned at Date Recorded Not on file documented as of this encounter Last Filed Vital Signs Vital Sign Reading Time Taken Comments Blood Pressure 179/94 05/20/2018 1:37 PM EDT Pulse 71 05/20/2018 1:37 PM EDT Temperature - - Respiratory Rate 16 05/20/2018 1:37 PM EDT Oxygen Saturation 93% 05/20/2018 1:37 PM EDT Inhaled Oxygen Concentration - - Weight 104.3 kg (230 lb) 05/20/2018 1:20 PM EDT Height 188 cm (6' 2) 05/20/2018 1:20 PM EDT Body Mass Index 29.53 05/20/2018 1:20 PM EDT documented in this encounter Patient Instructions Patient InstructionsBrianna Muller RN - 05/20/2018 1:30 PM EDT Pain Management Center Discharge Instructions: You were seen by Dr. Jaron Larson MD and Wong Suarez MD who performed lumbar epidural steroid injection. It is normal that the injection site will be sore for up to 48 hours. You may also experience mild stiffness in the joint near the injection site. [x] You may resume your normal activities: tomorrow. You may shower today. DO NOT tub bathe, use whirlpools, hot tubs or pool therapy for 2 days. Remove Band-Aid(s) later today/tomorrow. Do not drive until tomorrow. Use caution walking/climbing stairs as you may be unsteady on your feet. You may use your usual medications, including pain medications, as directed, unless otherwise instructed. You may use an ice pack as needed for the first 24 hours, on for 20 minutes then off for 20 minutes.Do not apply heat today. Attempt to empty your bladder 4-6 hours after your procedure. You received the following medications: Lidocaine, Omnipaque (contrast dye) and Dexamethasone SodiumPhosphate 10 mg. During regular business hours, please phone the Pain Management Center at with any questions or if the following or other troubling symptoms develop: 1) Prolonged dizziness or weakness (more than 1 day). 2) Localized swelling, redness or drainage at the injection site(s). 3) Temperature of 101 degrees that lasts for more than 4 hours. After 5 PM or on weekends, call and ask for Pain Clinic provider on-call. If you are unable to reach the Pain Management Center and have a complication, please call your Primary Care Provider or proceed to your local emergency department. Brianna Muller RN Special instructions documented in this encounter Progress Notes Brianna Muller RN - 05/20/2018 1:30 PM EDT Pre-Procedure Screening Questions: 1. Status: No 2. Patient states they have a cdl dedicated truck driver to transport after procedure? Yes 3. Patient taking antibiotics at present? No 4. NPO per Pain Management Center protocol? No 5. Patient diabetic: No Patient routinely taking anticoagulants ? No Patient Vital Signs documented in Doc Flowsheets associated with this encounter. Patient Discharge Instructions were reviewed with patient and copy provided to patient. Wong Suarez MD - 05/20/2018 1:30 PM EDT PREPROCEDURE HISTORY AND PHYSICAL Date of Visit: May 20, 2018 Chief Complaint: Low back with radiation into the left leg HPI: Subjective Du Mojica is a 57 y.o. male who presents today for repeat L5-S1 interlaminar epidural steroid injection. He had a prior LESI at the same level on 03/14/18 that gave him excellent relief for about 2 weeks or so, but the pain has now returned. He has been going to the chiropractor which has helped his low back and right leg pain, but has not addressed the left leg pain. The history is obtained from the patient, and I have reviewed medical records provided by the referring physician and located in the electronic medical record to fill in gaps in the patient's recollection of events, treatments and outcomes. LOCATION: Axial low back and down his left leg to the lateral ankle PAIN LEVEL AT REST 04/09 PAST MEDICAL HISTORY: Past Medical History: Diagnosis Date ??? Hyperlipidemia ??? Hypertension ??? Spinal stenosis 02/19/2018 L4-5, L5-S1 lateral recess and neuroforamen Remote surgery right L4-5 Laser surgery in [place] PAST SURGICAL HISTORY: History reviewed. No pertinent surgical history. FAMILY HISTORY: No family history on file. SOCIAL HISTORY: Social History Social History ??? Marital status: Spouse name: N/A ??? Number of children: N/A ??? Years of education: N/A Occupational History ??? Not on file. Social History Main Topics ??? Smoking status: Current Every Day Smoker Packs/day: 1.00 Types: Cigarettes ??? Smokeless tobacco: Never Used ??? Alcohol use Not on file ??? Drug use: Not on file ??? Sexual activity: Not on file Other Topics Concern ??? Not on file Social History Narrative ALLERGIES: Penicillins MEDICATIONS: Medications 05/20/18 1318 Medication Sig Taking? levothyroxine (SYNTHROID) 100 mcg Tablet take 1 tablet by mouth every morning ;ON EMPTY STOMACH,AT LEAST 30-60 MINUTES BEFORE FOOD Yes aspirin 81 mg Tablet, Delayed Release (E.C.) Take 1 tablet by mouth daily. Yes atorvastatin (LIPITOR) 10 mg Tablet Take 1 tablet by mouth daily. Yes cyclobenzaprine (FLEXERIL) 10 mg Tablet Take 1 tablet by mouth 3 times daily. Yes losartan (COZAAR) 100 mg Tablet Take 1 tablet by mouth daily. Yes ROS: Pt denies recent fever, chills, infection, wounds, hospitalizations, ED visits, use of antibiotics. Otherwise, as described above. PHYSICAL EXAM: Ht 188 cm (6' 2) Wt 104.3 kg (230 lb) BMI 29.53 kg/m2 General: patient well developed and is non-distressed Head: normocephalic and atraumatic CV: normal rate, normal rhythm Pulmonary: effort and breath sounds normal, no wheezing Skin: non-diaphoretic and no rashes noted MSK: decreased extension ROM, TTP in lumbar paraspnals Physical Exam RADIOLOGIC DATA: MRI and fluoroscopy images reviewed LABS/DX RESULTS: Labs reviewed and no new labs pertinent to today's procedure. ASSESSMENT: 1. Spinal stenosis of lumbar region with neurogenic claudication PLAN: Proceed with L5-S1 interlaminar epidural steroid injection. Wong Suarez MD Pain Management Fellow [address] [id number] / [facility] documented in this encounter Procedure Notes Jaron aLrson MD - 05/20/2018 1:30 PM EDTAssociated Order(s): EPIDURAL STEROID INJECTION Procedure(s): EPIDURAL STEROID INJECTION Pre-Procedure Diagnose(s): Spinal stenosis of lumbar region with neurogenic claudication Lumbar Epidural Steroid Injection with Fluoroscopic Guidance L5-S1 Chief Complaint: Low back pain, lower extremity pain-left Du Mojica has been referred to the Pain Management Center for Lumbar Epidural Steroid Injection. Du Mojica was greeted by the nurse who verified patients name and . Patient was then taken to the fluoroscopy suite. Mr. Mojica was interviewed and the medical record reviewed. There were no medical, pharmacologic, radiographic or other structural contraindications to attempting fluoroscopically guided epidural steroid injection. Risks and expected side effects as well as potential benefit of the procedure were revi ewed with Mr. Mojica, and his voiced concerns were addressed. The printed consent form was signed and witnessed. The risks and benefits were reviewed with the patient including but not limited to postdural puncture, headache, infection, nerve injury, allergic reaction, possible increase in symptoms over the ensuing 24 to 48 hours, paralysis. The patient appeared to understand, questions were answered and the patient agreed to proceed. TECHNIQUE: After informed written consent was obtained, the patient was placed in the prone position. The Lumbar spine was prepped with chloraprep and draped. Sterile technique was used, vital signs (BP, pulse oximtery) were monitored, time out was done, cap, glove, mask were worn. Using fluoroscopic guidance, the L5-S1 interspace was identified. The skin and subcutaneous structures were anesthetized with lidocaine 1% to a total volume of 5 ml. An 18 g tuohy needle was advance tothe epidural space toward the left using the loss of resistance technique with air and fluoroscopic guidance. There was no blood or CSF. Lateral view was obtained. Under AP view Omnipaque 240 1 cc's was injected while visualized with live fluoroscopy. There was no evidence of intravascular uptake, theepidural space was delineated. The patient received Decadron 10 mg to a total volume of 1 ml after negative aspiration for blood or CSF. Radiographs were archived in the patient???s chart. OUTCOME:Outcome: The patient tolerated the procedure well and had stable vital signs. Follow up plans and appointments were discussed with Du Mojica. The patient was observed in the pain clinicand then discharged after having met discharge criteria to the care of a cdl dedicated truck driver. The patient received written instructions as documented in nursing records. COMMENTS: Repeat Can return for repeat injection after 2 weeks if pain recurs and there has at least been transient improvement, otherwise follow up with Dr. Kohler. Wong Suarez MD Pain Fellow I was the attending physician supervising the fellow or resident in the above care and I was presentwith the resident for the entire procedure. JARON LARSON MD CC: Desire Augustin APRN @[email or web address]@ documented in this encounter Plan of Treatment Not on filedocumented as of this encounter Procedures Procedure Name Priority Date/Time Associated Diagnosis Comme nts EPIDURAL STEROID Routine 05/24/2018 4:55 PM Spinal stenosis of Results for this INJECTION EDT lumbar region with procedure are in neurogenic the results claudication section. documented in this encounter Results EPIDURAL STEROID INJECTION (05/24/2018 4:55 PM EDT) Narrative Jaron Larson MD - 05/24/2018 4:55 P M EDT Jaron Larson MD ? 05/24/2018 ??4:55 PM Lumbar Epidural Steroid Injection with F luoroscopic Guidance L5-S1 Chief Complaint: Low back pain, lower ex tremity pain-left Du Mojica has been referred to [facility] for Lumbar Epidural Steroid Injection. Du Rebolledoan was greeted by the edgar driver who verified patients name and . ??Patient was then taken t o the fluoroscopy suite. Mr. Mojica was interviewed and the [facility] record reviewed. ?? There were no medical, pharmacologic, ra diographic or other structural contraindications to attempti ng fluoroscopically guided epidural steroid injection. ??Ris ks and expected side effects as well as potential benefit of the procedure were reviewed with Mr. Mojica, and his voice d concerns were addressed. ??The printed consent form wa s signed and witnessed. The risks and benefits were reviewed wit h the patient including but not limited to post dural puncture, headache, infection, nerve injury, allergic reaction, possibl e increase in symptoms over the ensuing 24 to 48 hours, paralys is. ??The patient appeared to understand, ??questions were answered and the patient agreed to proceed. TECHNIQUE: After informed written consen t was obtained, the patient was placed in the prone position . The Lumbar spine was prepped with chloraprep and draped. ??St erile technique was used, vital signs (BP, pulse oximtery) were mo nitored, time out was done, cap, glove, mask were worn. Using fluoroscopic guidance, the ??L5-S1 ??interspace was identified. ??The skin and subcutaneous structures were anesthetized with lidocaine 1% to a tota l volume of ??5 ??ml. ?? An 18 g tuohy needle was advance to the epi dural space toward the left using the loss of resistance techni que with air and fluoroscopic guidance. ??There was no bl ood or CSF. Lateral view was obtained. ??Under AP view Omnipaque 240 ??1 cc's was injected while visualized with live fluoroscopy. ?? There was no evidence of intravascular uptake, the epidural sp neel was delineated. ??The patient received Decadron 10 ?? mg ?to a total volume of 1 ml after negative aspiration for blood or CSF. ??Radiographs were archived in the patient? s chart. OUTCOME:Outcome: The patient tolerated t he procedure well and had stable vital signs. ??Follow up plans an d appointments were discussed with Du Mojica. The darby davis was observed in the pain clinic and then discharged after leslee kuhn met discharge criteria ??to the care of a cdl dedicated truck driver. ??Th e patient received written instructions as documented in nursing re cords. ?? COMMENTS: Repeat Can return for repeat injection a fter 2 weeks if pain recurs and there has at least been trans ient improvement, otherwise follow up with Dr. Kohler. Wong Suarez MD Pain Fellow I was the attending physician supervisin g the fellow or resident in the above care and I was present with the resident for the entire procedure. JARON LARSON MD CC: Desire Augustin APRN @[email or web address]@ Jaron Larson MD NEUROLOGY ORDERABLES documented in this encounter Visit Diagnoses Diagnosis Spinal stenosis of lumbar region with ne urogenic claudication Spinal stenosis, lumbar region, with aide rogenic claudication documented in this encounter Administered Medications Inactive Administered Medications - up to 3 most recent administrations Medication Order MAR Action Action Date Dose Rate Site dexamethasone(PF) (DECADRON) 10 Given 05/20/2018 2:00 PM EDT 10 mg mg/mL injection 10 mg 10 mg, Epidural, ONCE, 1 dose, On Sun05/20/18 at 1400, Routine iohexol (OMNIPAQUE) 240 mg/mL solution 1 mL Given 05/20/2018 2:00 PM EDT 1 mL 1 mL, Other, ONCE, 1 dose, On Sun05/20/18 at 1400, 49 ml wasted, Routine documented in this encounter Care Teams Resourcing Consultant Relationship Specialty Start Date End Date Desire Augustin APRN PCP - General Family Medicine 02/19/18 08/12/[address] [address] documented as of this encounter
--- OUTSIDE RECORDS SUMMARY | 2022-07-21 01:05 | XMS_ITS | Encounter Summary ---
:1960 Author Organization [facility] [place] [address] Care Team Providers Name Role Phone Desire Augustin APRN Primary Care Provider Reason for Referral Routine Exam (Routine) - Specialty Diagnoses / Procedures Referred By Contact Refer red To Contact Diagnoses Intervertebral disc disorder with radiculopathy of lumbar region Lee Ann Byrd MD Procedures Epidural steroid injection - [facility] [place] [address] Referral ID Status Reason Start Date Expiration Visits Visits Date Requested Authorized [id number] Specialty 03/14/2018 03/14/2019 1 1 Service Requested Reason for Visit Reason Comments Back And Burning Leg Pain Consultation (Routine) - Closed Specialty Diagnoses / Procedures Referred By Contact Refer red To Contact Pain Management Diagnoses Spinal stenosis of lumbar region with neurogenic claudication Shivam Kohler MD [facility] 3d Procedures PRO INJECTION DX/THER SBST INTRLMNR LMBR/SAC W/IMG GDN [facility] [address] [address] Fax: Referral ID Status Reason Start Date Expiration Date Visits V isits Requested Authorized [id number] Closed Consult, 02/19/2018 02/19/2019 1 1 Test & Treat Encounter Details Date Type Department Care Team Description 03/14/2018 Procedure visit Pain Management at Eligio Mclean Inte rvertebral disc [facility] disorder with [facility] radiculop [facility] [address] moran (Primary Dx) [place], [place] PAIN CL[place] [address] [place], [place] [phone] [facility] Social History Tobacco Use Types Packs/Day Years Used Date Current Every Day Smoker Cigarettes 1 Smokeless Tobacco: Never Used Sex Assigned at Date Recorded Not on file documented as of this encounter Last Filed Vital Signs Vital Sign Reading Time Taken Comments Blood Pressure 151/92 03/14/2018 2:38 PM EDT Pulse 71 03/14/2018 2:38 PM EDT Temperature - - Respiratory Rate - - Oxygen Saturation 96% 03/14/2018 2:38 PM EDT Inhaled Oxygen Concentration - - Weight 108 kg (238 lb) 03/14/2018 2:19 PM EDT Height 188 cm (6' 2) 03/14/2018 2:19 PM EDT Body Mass Index 30.56 03/14/2018 2:19 PM EDT documented in this encounter Patient Instructions Patient InstructionsGadIrma leach RN - 03/14/2018 2:15 PM EDT Pain Management Center Discharge Instructions: You were seen by Dr. Eligio Mclean DO and Lee Ann Byrd MD who performed L5- S1 Interlaminar Epidural Steroid Injection. It is normal that the injection site [...] your procedure. You received the following medications: Depo-Medrol 80 mg, Lidocaine and Omnipaque (contrast dye). During regular business hours, please phone the [...] or proceed to your local emergency department. Irma Hogue RN Special instructions documented in this encounter Progress Notes Irma Hogue RN - 03/14/2018 2:15 PM EDT Pre-Procedure Screening Questions: 1. Status: No 2. Patient states they have a bottom hoop driver to transport after procedure? Yes 3. Patient taking antibiotics at present? No 4. NPO per Pain Management Center protocol? No 5. Patient diabetic: No Patient routinely taking anticoagulants ? No Patient Vital Signs documented in Doc Flowsheets associated with this encounter. Patient Discharge Instructions were reviewed with patient and copy provided to patient. Lee Ann Byrd MD - 03/14/2018 2:15 PM EDT PREPROCEDURE HISTORY AND PHYSICAL Date of Visit: March 14, 2018 Chief Complaint: Severe muscle cramps that starts right above the belt line on the left side that radiates down the left buttock, radiating posterior thigh down the posterior- lateral calf and to the side of his left ankle. Tried Lyrica, Gabapentin without much relief. HPI: Subjective Du Mojica is a 57 y.o. male who presents today for lumbar epidural steroid injection, referred from Dr Kohler. Pt had prior right L4-5 laser surgery in in [facility]. He describes his pain as The history is obtained from the patient, and I have reviewed medical records provided by the referring physician and located in the electronic medical record to fill in gaps in the patient's recollection of events, treatments and outcomes. LOCATION: left sided low back pain and left leg pain. PAIN LEVEL AT REST 6 PAST MEDICAL HISTORY: Past Medical History: Diagnosis Date ??? Spinal stenosis 02/19/2018 L4-5, L5-S1 lateral recess and neuroforamen Remote surgery right L4-5 Laser surgery in [place] PAST SURGICAL HISTORY: History reviewed. No pertinent surgical history. ALLERGIES: Penicillins MEDICATIONS: Medications 03/14/18 1419 Medication Sig Taking? aspirin 81 mg Tablet, Delayed Release (E.C.) Take 1 tablet by mouth daily. Yes atorvastatin (LIPITOR) 10 mg Tablet Take 1 tablet by mouth daily. Yes losartan (COZAAR) 100 mg Tablet Take 1 tablet by mouth daily. Yes cyclobenzaprine (FLEXERIL) 10 mg Tablet Take 1 tablet by mouth 3 times daily. FAMILY HISTORY: History reviewed. No pertinent family history. SOCIAL HISTORY: Social History Social History ??? [...] ??? Not on file Social History Narrative ROS: Denies fever, chills, SOB, +left leg numbness. PHYSICAL EXAM: Ht 188 cm (6' 2) Wt 108 kg (238 lb) BMI 30.56 kg/m2 Physical Exam Constitutional: He is oriented to person, place, and time. Cardiovascular: Normal rate and regular rhythm. Pulmonary/Chest: Effort normal and breath sounds normal. Abdominal: Soft. Bowel sounds are normal. Musculoskeletal: Normal range of motion. Neurological: He is alert and oriented to person, place, and time. Skin: Skin is warm and dry. No rash noted. Vitals reviewed. RADIOLOGIC DATA: MRI L spine reviewed. ASSESSMENT: Assessment 1. Intervertebral disc disorder with radiculopathy of lumbar region Pt describes left S1 radicular pain. PLAN: - proceed with interlaminar L5-S1 epidural steroid injection with left paramedian approach. Lee Ann Byrd Pain Fellow documented in this encounter Procedure Notes Lee Ann Byrd MD - 03/14/2018 2:15 PM EDTAssociated Order(s): EPIDURAL STEROID INJECTION Procedure(s): EPIDURAL STEROID INJECTION Pre-Procedure Diagnose(s): Intervertebral disc disorder with radiculopathy of lumbar region LUMBAR INTERLAMINAR EPIDURAL STERIOID INJECTION PROCEDURE NOTE Mr. Du Mojica has been referred to the Pain Management Center for a lumbar epidural steroid injection by Shivam Kohler MD [facility] [address]. The patient complains of low back pain with pain radiating down the left leg in the left S1 dermatomal distribution. Prior L4-5 laser surgery in . Large central disc protrusion at L5-S1 on MRI. I considered an interlaminar lumbar EHSAN vs a transforaminal left S1 epidural steroid injection and chose the interlaminar approach as I was not entirely sure that all his symptoms were coming from the left S1. Mr. Mojica was greeted by the nurse who verified patients name and . The patient was then taken to the fluoroscopy suite. Mr. Mojica was interviewed and the medical record reviewed. There were no medical, pharmacologic, radiographic, or other structural contraindications to attempting fluoroscopically guided lumbar epidural steroid injection. Risks and potential side effects, as well as potential benefits of the procedure were reviewed with Mr. Mojica. His voiced concerns were addressed. After I was assured that informed consent was obtained, the patient consent form was signed. Standard time-out procedure was performed. Mr. Mojica was placed in the prone position on the fluoroscopy table and automated blood pressure cuff and pulse oximeter applied. The skin entry point for entering/approaching the L5-S1 epidural space using left paramedian approach for the lumbar epidural steroid injection was marked. Following thorough chlorhexadine preparation of the skin and draping and 1% lidocaine infiltration of the skin entry point and subcutaneous tissues, an 18 gauge Touhy needle was placed and advanced under fluoroscopicguidance and with loss of resistance technique into the L5-S1 epidural space. Needle tip placement and depth were aided and confirmed by fluoroscopy. There was no paresthesia or return of blood or CSF through the needle. 3 cc's of Omnipaque 240 was injected with clear epidural spread confirmed with fluoroscopy. 8cc of normal saline was injected followed by 80 mg of preservative-free Depo-medrol (80 mg/cc) was injected. This was followed by 1 cc of 1% lidocaine to flush the steroid out of the needle. There was not any unusual discomfort expressed by Mr. Mojica. Mr. Mojica's vital signs were stable throughout the procedure and were as recorded in nursing records. Follow up plans and appointments were discussed with Mr. Mojica. The patient is set to follow up with Dr Kohler. Post procedure instruction was given as documented in nursing records and having met discharge criteria he was discharged from the Pain Management Center. Comments: If this procedure is successful in helping with pain and improving his function, it can becompleted a maximum of 3 times every 12 months. I personally performed this entire procedure. The fellow acted as a scribe. Eligio Mclean DO, MPH [facility]-subspecialty board certification in Pain Medicine Attending Physician - Pain Management CC: Shivam Kohler MD [facility] [place] [address] documented in this encounter Plan of Treatment Not on filedocumented as of this encounter Procedures Procedure Name Priority Date/Time Associated Diagnosis Comme nts EPIDURAL STEROID Routine 03/15/2018 10:24 Intervertebral disc Results for this INJECTION AM EDT disorder with procedure are in radiculopathy of lumbar the results region section. documented in this encounter Results EPIDURAL STEROID INJECTION (03/15/2018 10:24 AM EDT) Narrative Eligio Mclean DO - 03/15/2018 10:24 AM EDT Eligio Mclean DO ? 03/15/2018 10:24 AM LUMBAR INTERLAMINAR EPIDURAL STERIOID I NJECTION PROCEDURE NOTE Mr. Du Mojica ??has been referre d to the Pain Management Center for a lumbar epidural steroid inj ection by Shivam Kohler MD [facility] [place] [address]. The patient complains of low back pain w ith pain radiating down the left leg in the left S1 dermatomal d istribution. Prior L4-5 laser surgery in . ??Large central disc protrusion at L5-S1 on MRI. ??I considered an interlaminar l umbar EHSAN vs a transforaminal left S1 epidural steroid injection and chose the interlaminar approach as I was not entir chikis sure that all his symptoms were coming from the left S1. ? ? Mr. Mojica was greeted by the nurse who verified patients name and . ??The patient was then taken to the fluoroscopy suite. Mr. Mojica was interviewed and the [facility] record reviewed. ?? There were no medical, pharmacologic, ra diographic, or other structural contraindications to attempti ng fluoroscopically guided lumbar epidural steroid injection . Risks and potential side effects, as well as potential benef its of the procedure were reviewed with Mr. Mojica. ??His voiced concerns were addressed. ?? After I was assured that informed consen t was obtained, the patient consent form was signed. ??Stand randall time-out procedure was performed. Mr. Mojica was placed in the prone posi tion on the fluoroscopy table and automated blood pressure cuff and pulse oximeter applied. ??The skin entry point for ente ring/approaching the L5-S1 epidural space using left paramedian cole matamoros for the lumbar epidural steroid injection was marked. ? ?Following thorough chlorhexadine preparation of the skin an d draping and 1% lidocaine infiltration of the skin entry point and subcutaneous tissues, an 18 gauge Touhy needle was pl aced and advanced under fluoroscopic guidance and with loss of r esistance technique into the L5-S1 epidural space. ??Needle tip p lacement and depth were aided and confirmed by fluoroscopy. Ther e was no paresthesia or return of blood or CSF through the needl e. 3 cc's of Omnipaque 240 was injected with clear epidural spr ead confirmed with fluoroscopy. 8cc of normal saline was in jected followed by 80 mg of preservative-free Depo-medrol (80 mg/ cc) was injected. ??This was followed by 1 cc of 1% lidocaine to flush the steroid out of the needle. There was not any unusual di scomfort expressed by Mr. Mojica. Mr. Mojica's vital signs were stable th roughout the procedure and were as recorded in nursing records. ?? Follow up plans and appointments were di scussed with Mr. Mojica. The patient is set to follow up with Dr Kohler. ??Post procedure instruction was given as documented in n ursing records and having met discharge criteria he was discharged from the Pain Management Center. Comments: ??If this procedure is success ful in helping with pain and improving his function, it can be co mpleted a maximum of 3 times every 12 months. I personally performed this entire proce dure. ??The fellow acted as a scribe. Eligio Mclean DO, MPH [facility]-subspecialty board certification i n Pain Medicine Attending Physician - Pain Management CC: Shivam Kohler MD [facility] [place] [address] Eligio Montes DO NEUROLOGY ORDERABLES documented in this encounter Visit Diagnoses Diagnosis Intervertebral disc disorder with radicu lopathy of lumbar region - Primary Thoracic or lumbosacral neuritis or radi culitis, unspecified documented in this encounter Administered Medications Inactive Administered Medications - up to 3 most recent administrations Medication Order MAR Action Action Date Dose Rate Site iohexol (OMNIPAQUE) 240 mg/mL Given 03/14/2018 3:00 PM EDT 1 mL solution 1 mL 1 mL, Other, ONCE, 1 dose, On Kaela 03/14/18 at 1500, 49 ml wasted, Routine methylPREDNISolone acetate (DEPO-Medrol) Given 03/14/2018 2:30 P M EDT 80 mg injection 80 mg 80 mg, Epidural, ONCE, 1 dose, On Kaela 03/14/18 at 1430, Routine documented in this encounter Care Teams Supervisor Process Testing Relationship Specialty Start Date End Date Desire Augustin APRN PCP - General Family Medicine 02/19/18 08/12/[address] [place] [address] documented as of this encounter
--- OUTSIDE RECORDS SUMMARY | 2022-07-21 01:05 | XMS_ITS | Encounter Summary ---
:1960 Author Organization [facility] [place] [address] Care Team Providers Name Role Phone Desire Augustin APRN Primary Care Provider Reason for Visit Consultation (Routine) - Closed Specialty Diagnoses / Procedures Referred By Contact Refer red To Contact Gastroenterology Diagnoses GERD W/OUT ESOPHAGITIS Desire Augustin APRN [facility] Procedures STABLE - NEXT AVAILABLE [address] [place] [address] [place] [phone] Phone: Fax: Referral ID Status Reason Start Date Expiration Date Visits V isits Requested Authorized [id number] Closed Consult, 02/25/2019 02/25/2020 1 1 Test & Treat Connection Center Encounter Details Date Type Department Care Team Description 04/24/2019 Office Visit Gastroenterology at [facility] O'Marcy, Gastroesophageal reflux [facility] Jami Brothers APRN disease, [place] [address] [facility] presence not specified [phone] [place] [address] Social History Tobacco Use Types Packs/Day Years Used Date Current Every Day Smoker Cigarettes 1 Smokeless Tobacco: Never Used Sex Assigned at Date Recorded Not on file documented as of this encounter Last Filed Vital Signs Vital Sign Reading Time Taken Comments Blood Pressure 126/82 04/24/2019 12:07 PM EDT Pulse 91 04/24/2019 12:07 PM EDT Temperature - - Respiratory Rate - - Oxygen Saturation - - Inhaled Oxygen Concentration - - Weight 123.5 kg (272 lb 4.8 oz) 04/24/2019 12:07 PM EDT Height 190.5 cm (6' 3) 04/24/2019 12:07 PM EDT Body Mass Index 34.04 04/24/2019 12:07 PM EDT documented in this encounter Patient Instructions Patient InstructionsDeneen Patrick RN - 04/24/2019 12:00 PM EDT egd documented in this encounter Progress Notes Deneen Patrick RN - 04/24/2019 12:00 PM EDT Section of Gastroenterology and Hepatology [address] [place] [address] .Du Mojica : 1960 Patient is here for further evaluation of gastrointestinal symptoms at the request of Desire Augustin. HPI: Pt is here for gerd. Sx for years. But sx are worsening. Had surgery on back and he became inactive the sx worsened. Pt is taking nexium 40mg bid. This seems to have resolved his sx. Was omeprazole beforehand and he developed diarrhea. Prior to starting ppi therapy six weeks ago, he was using otc antacids. The nexium 40mg bid. Has resolved the reflux. He is not having any more night time sx. Prior he was awakening coughing, choking on regurgitation. No substernal burning. No regurgitation. Denies sore throats, voice changes, throat burning. No dysphagia, odynophagia, n/v. Has not had an upper endoscopy. Reviewed diet. Does not eat late. Keeping 3 hours between last meal and bedtime. No food allergies. Low dose daily asa. No lower gi sx. Has not had a colonoscopy. Social History Socioeconomic History ??? Marital status: [...] and Sexual Activity ??? Alcohol use: Not on file ??? Drug use: Not on file ??? Sexual activity: Not on file Lifestyle ??? Physical activity: Days per week: Not on file Minutes per session: Not on file ??? Stress: Not on file Relationships ??? Social connections: Talks on phone: Not on file Gets together: Not on file Attends episcopal service: Not on file Active member of [...] Social History Narrative ??? Not on file Medical History: htn; hyperlipidemia; gerd; hypothyroidism Surgical History: hand surgery; back surgery Family History: no gi etiologies Allergies Allergen Reactions ??? Hydrochlorothiazide Other (See Comments) Water retention,could not pee ??? Lisinopril Itching ??? Penicillins Current Outpatient Medications: ??? irbesartan (AVAPRO) 300 mg Tablet, 300 mg., Disp: , Rfl: 0 ??? lidocaine (XYLOCAINE) 5 % Ointment, APPLY twice a day to four times a day if needed for pain, Disp: , Rfl: 0 ??? omeprazole (PRILOSEC) 40 mg Capsule, Delayed Release(E.C.), take 1 capsule by mouth every morning AT LEAST 20-30 MINUTES BEFORE FIRST MEAL, Disp: , Rfl: 0 ??? amLODIPine (NORVASC) 5 mg Tablet, daily., Disp: , Rfl: 0 ??? levothyroxine (SYNTHROID) 100 mcg Tablet, take 1 tablet by mouth every morning ;ON EMPTY STOMACH,AT LEAST 30-60 MINUTES BEFORE FOOD, Disp: , Rfl: 0 ??? aspirin 81 mg Tablet, Delayed Release (E.C.), Take 1 tablet by mouth daily., Disp: , Rfl: ??? atorvastatin (LIPITOR) 10 mg Tablet, Take 1 tablet by mouth daily., Disp: , Rfl: ??? cyclobenzaprine (FLEXERIL) 10 mg Tablet, Take 1 tablet by mouth 3 times daily., Disp: , Rfl: ??? losartan (COZAAR) 100 mg Tablet, Take 1 tablet by mouth daily., Disp: , Rfl: Review of Systems - Negative except General: Cardiac: Resp: GI: see above : MS: Neuro: Skin: Psyche: Sleep: Endo: Impression: 1. Gerd: discussed medical and surgical approach to gerd. continue with nexium 40mg bid, 30 minutes before breakfast and supper. gerd diet and lifestyle modifications. Given long standing hx of uncontrolled gerd, schedule upper endoscopy for surveillance of possible Barretts. At some point with long-term control of gerd with ppi bid, pt can try to taper to qd. 2. Discussed screening colonoscopy. Pt will think this over and if wishes to proceed he will f/u with pcp. 3. F/u with pt once results received. I spent a total of 53 minutes face to face with this patient; 38 minutes were spent counseling the patient in the medical problems described above. Sincerely, Deneen Patrick NP Section of Gastroenterology and Hepatology documented in this encounter Plan of Treatment Scheduled Orders Name Type Priority Associated Diagnoses Order S chedule UPPER GI ENDOSCOPY Procedures Routine Gastroesophageal reflu x Ordered: 04/24/2019 disease, esophagitis presence not specified documented as of this encounter Visit Diagnoses Diagnosis Gastroesophageal reflux disease, esophag itis presence not specified documented in this encounter Care Teams Warp Clamper Relationship Specialty Start Date End Date Desire Augustin APRN PCP - General Family Medicine 02/19/18 08/12/[address] [place] [address] documented as of this encounter
--- OUTSIDE RECORDS SUMMARY | 2022-07-21 01:05 | XMS_ITS | Encounter Summary ---
:1960 Author Organization [facility] [place] [address] Care Team Providers Name Role Phone Price Kilpatrick DO Primary Care Provider Reason for Visit Consultation (Routine) - Specialty Diagnoses / Procedures Referred By Contact Refer red To Contact General Surgery Diagnoses Gastro-esophageal reflux disease without esophagitis Price Kilpatrick DO [facility] 4l [address] [place] [address] [address] [place] [address] Fax: Referral ID Status Reason Start Date Expiration Date Visits V isits Requested Authorized [id number] Consult, Test 08/13/2019 08/12/2020 6 6 & Treat Connection Center PCP Updated and/or Approved Encounter Details Date Type Department Care Team Description 09/03/2019 Office Visit General Surgery at Shivam Osman [facility] oesophageal reflux [facility] [place] Darrell disease without [facility] esophagit is [address] [place] [facility] [address] [place], [place] [phone] [facility] Social History Tobacco Use Types Packs/Day Years Used Date Current Every Day Smoker Cigarettes 1 Smokeless Tobacco: Never Used Alcohol Use Standard Drinks/Week Comments Not Currently 0 (1 standard drink = 0.6 oz pure alcoho l) Sex Assigned at Date Recorded Not on file documented as of this encounter Last Filed Vital Signs Vital Sign Reading Time Taken Comments Blood Pressure - - Pulse - - Temperature - - Respiratory Rate - - Oxygen Saturation - - Inhaled Oxygen Concentration - - Weight 125.2 kg (276 lb) 09/03/2019 12:52 PM EST Height 188 cm (6' 2.02) 09/03/2019 12:52 PM EST Body Mass Index 35.42 09/03/2019 12:52 PM EST documented in this encounter Progress Notes Shivam sOman MD - 09/03/2019 1:00 PM EST Patient is a 58-year-old gentleman who is referred for possible antireflux surgery. He is someone that has had reflux for many years slowly becoming refractory to medical therapy. He specifically denies significant describes specific nocturnal regurgitation as well as even bending over he is likely to have spontaneous regurgitation. He has had no prior abdominal surgery. He had a recent upper GI endoscopy which showed a 4 cm hiatal hernia his distal esophagus was biopsied which did not show anythingother than mild chronic inflammation. There is no active esophagitis on visual inspection. I had a 40-minute conversation with him today the entire time [id number] conversation regarding pathophysiology of acid reflux as well as hiatal hernia. He is very interested in pursuing a surgical solution tohis reflux in which case we would need to obtain a Bella pH probe test off of antacid medications for at least a week in addition we would obtain esophageal motility to see whether he is a candidate for a fundoplication. We will go and set these up once he has had these done I will see him back in clinic and make subsequent diagnostic and therapeutic decisions based upon the results. He seems comfortable the plan documented in this encounter Plan of Treatment Not on filedocumented as of this encounter Visit Diagnoses Diagnosis Gastroesophageal reflux disease without esophagitis Esophageal reflux documented in this encounter Care Teams Biomedical Engineering Internship Relationship Specialty Start Date End Date Price Kilpatrick DO PCP - General Family Medicine 08/13/[address] [place] [address] documented as of this encounter
--- OUTSIDE RECORDS SUMMARY | 2022-07-21 01:05 | XMS_ITS | Encounter Summary ---
:1960 Author Organization [place] [address] Care Team Providers Name Role Phone Desire Augustin APRN Primary Care Provider Encounter Details Date Type Department Care Team Description 06/03/2019 Hospital En[place] [facility] [place] [facility] [place] [address] [place] [address] [facility] [place], [place] [address] Social History Tobacco Use Types Packs/Day Years Used Date Current Every Day Smoker Cigarettes 1 Smokeless Tobacco: Never Used Alcohol Use Standard Drinks/Week Comments Not Currently 0 (1 standard drink = 0.6 oz pure alcoho l) Sex Assigned at Date Recorded Not on file documented as of this encounter Last Filed Vital Signs Vital Sign Reading Time Taken Comments Blood Pressure 121/77 06/03/2019 9:50 AM EDT Pulse 68 06/03/2019 8:36 AM EDT Temperature 36.8 ??C (98.2 ??F) 06/03/2019 8:36 AM EDT Respiratory Rate 16 06/03/2019 9:50 AM EDT Oxygen Saturation 94% 06/03/2019 9:50 AM EDT Inhaled Oxygen Concentration - - Weight 120.2 kg (265 lb) 06/03/2019 8:36 AM EDT Height 188 cm (6' 2) 06/03/2019 8:36 AM EDT Body Mass Index 34.02 06/03/2019 8:36 AM EDT documented in this encounter Discharge Instructions Discharge InstructionsNicole Johnson RN - 06/03/2019 9:22 AM EDT UPPER GI ENDOSCOPY WHAT TO EXPECT AFTER THE PROCEDURE After the test you may feel a little more gassy or bloated than usual, this is normal. ACTIVITY Because of the sedation that you received Your judgement and reaction time are affected ?? Go home and rest quietly for the remainder of the day. You may resume your normal activities tomorrow. ?? Change from one position to the next slowly. You may lose your balance unexpectedly Be careful on stairs, as you may be unsteady on your feet. FOR THE NEXT 24 HRS ?? DO NOT DRIVE OR OPERATE ANY MACHINERY ?? DO NOT DRINK ALCOHOLIC BEVERAGES ?? DO NOT SIGN LEGAL DOCUMENTS ?? If you are a smoker: DO NOT SMOKE WHILE YOU ARE ALONE Diet ?? Start by eating small portions of foods that ordinarily will not upset your stomach. Be gentle with what you choose to start with. ?? Drink plenty of fluids ( unless otherwise told not to) Medications You may have a mild sore throat. Ice chips, popsicles, over the counter throat lozenges or spray may help numb your throat. This procedure should not cause a fever. IV SITE-- slight redness or tenderness is normal, you can use warm compresses if you get concerned.If the tenderness +/or redness increases or foul drainage and a red streak occurs, please contact your PCP immediately. WHEN SHOULD YOU CALL FOR HELP? Call 911 anytime you think that you need emergency care. For example, call if: You passed out (lost consciousness). You cough up blood. You vomit blood or what looks like coffee grounds. You pass maroon or very bloody stools. Call your healthcare provider or seek immediate medical attention if: You have trouble swallowing. You have belly pain. Your stools are black or tarlike or have streaks of blood. You are sick to your stomach or cannot keep fluids down. Watch closely for changes in your health, and be sure to contact your doctor IF Your throat still hurts after a day or two You do not get better as expected. Sunday-Sunday Same Day Endo [phone] 7a-8p Otherwise contact [phone] and ask to speak to the chief dispatcher service bilingual receptionist Follow-up care is a vega part of your treatment and safety. Be sure to make and go to all appointments, and call your doctor if you are having problems. Instructions have been reviewed and patient expresses understanding documented in this encounter Medications at Time of Discharge [...] mouth daily. documented as of this encounter H&P Notes Jordin Matta MD - 06/03/2019 9:00 AM EDT PROBLEM LIST Patient Active Problem List Diagnosis Code ??? Spinal stenosis M48.00 HISTORY OF PRESENT ILLNESS Du Mojica is a 58 y.o. y/o who presents for EGD for dysphagia. MEDICATIONS No current facility-administered medications on file prior to encounter. Current Outpatient Medications on File Prior to Encounter Medication Sig Dispense Refill ??? esomeprazole (NEXIUM) 40 mg Capsule, Delayed Release(E.C.) Take 40 mg by mouth 2 times daily. ??? amLODIPine (NORVASC) 5 mg Tablet daily. [...] 1 tablet by mouth 3 times daily. ??? losartan (COZAAR) 100 mg Tablet Take 1 tablet by mouth daily. ??? irbesartan (AVAPRO) 300 mg Tablet 300 mg. 0 ??? lidocaine (XYLOCAINE) 5 % Ointment APPLY twice a day to four times a day if needed for pain 0 ??? omeprazole (PRILOSEC) 40 mg Capsule, Delayed Release(E.C.) take 1 capsule by mouth every morningAT LEAST 20-30 MINUTES BEFORE FIRST MEAL 0 PHYSICAL EXAM: Blood pressure (!) 141/94, pulse 68, temperature 36.8 ??C (98.2 ??F), temperature source Oral, resp.rate 16, height 188 cm (6' 2), weight 120.2 kg (265 lb), SpO2 96 %. GEN: Alert, cooperative. Pleasant. In NAD MP I ASA II RECENT LABS No results found for this or any previous visit (from the past 24 hour(s)). ASSESSMENT AND PLAN Du Mojica is a 58 y.o. y/o who presents for endoscopic evaluation. Risks extensively discussed including bleeding, infection, reaction to anesthesia, perforation, missing a cancer (if applicable) and/or other unforseen complication. Consent signed and patient well informed of the risks of the p rocedure. documented in this encounter Plan of Treatment Not on filedocumented as of this encounter Procedures Procedure Name Priority Date/Time Associated Diagnosis Comme nts SPECIMEN TO Routine 06/03/2019 9:14 Results for this PATHOLOGY AM EDT procedure are i n the results section. SURGICAL PATHOLOGY Routine 06/03/2019 9:11 Result s for this REPORT AM EDT procedure are i n the results section. EGD WITH BIOPSY 06/03/2019 9:02 Gastroesophageal reflu x (WRVU 2.49) AM EDT disease, esophagitis presence not specified UPPER GI ENDOSCOPY Routine 06/03/2019 8:52 Result s for this AM EDT procedure are i n the results section. documented in this encounter Results Specimen to Pathology (06/03/2019 9:14 AM EDT) Specimen Anatomical Collection Method Collection Time Receive d Time (Source) Location / / Volume Laterality AP Specimen 06/03/2019 9:14 AM 9 9:14 EDT AM EDT Narrative [facility] - 06/03/2019 9:14 AM EDT Specimen requisition ordered. ??Separate Pathology report to follow Jordin Matta MD PATHOLOGY/CYTOLOGY ORDERABLE S Performing Organization Address City/State/[place] [address] Surgical Pathology Report (06/03/2019 9:11 AM EDT) Component Value Ref Test Analysis Performed At [facility] Range Method Time Signature Surgical [id number] ? Location: 4T; EA07; A [facility] Report The signing pathologist has (i) examined the relevant preparation(s) for the [facility] specimen(s) and (ii) rendered or confirmed the diagnosis(es) . HOSPITAL LABORATORY . ?Surgic al Pathology DIAGNOSIS GE junction, esophagus, ?? 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 ??There is no evidence of intestinal metaplasia. Electronically signed by: ??Margarette Mendiola MD Verified: ??06/05/2019 ?Pathologist Performed at: ??-[facility] Dept. of Pathology, [place], [place] CLINICAL INFORMATION Specimen Submitted: A - G junction esophagus Clinical History and Diagnosis: GERD SPECIMEN PROCESSING A - Labeled/Fixative: GE junction esopha jase R/O Huerta's esophagus, formalin. Quantity/Size: Five, averaging 0.3 cm. Tissue Description: Soft, henry-pink tissues. Sections/Processing: Submitted en toto ??in 1 cassette labeled A1. ??sns Specimen (Source) Anatomical Collection Method Collection Time Re ceived Time Location / / Volume Laterality 06/03/2019 9:11 AM EDT Jordin Matta MD PATHOLOGY/CYTOLOGY ORDERABLE S Performing Organization Address City/State/[place] [address] UPPER GI ENDOSCOPY (06/03/2019 8:52 AM EDT) Component Value Ref Test Analysis Performed At [facility] Method Time Signature UPPER GI [facility] ENDOSCOPY Endoscopy Procedure Date: 06/03/2019 8:52 AM ? Patient Name: Du Mojica ? Date of : 1960 ? Age: 58 ? Order #: [id number] ? Instrument Name: [id number] ? Procedure: ? Upper GI endoscopy Indications: ? Heartburn Providers: ? Jordin Matta MD, Brandy William , ? Du Lunsford Referring MD: ?Desire Augustin Medicines: ? Monitored Anesthesia Care Complications: ? No immediate complications. Procedure: ? Pre-Anesthesia Assessment: ? - Prior to the procedure, a H istory ? and Physical was performed, a nd ? patient medications and aller gies ? were reviewed. The patient is ? competent. The risks and bene fits of ? the procedure and the sedatio n ? options and risks were discus sed with ? the patient. All questions we re ? answered and informed consent was ? obtained. Patient identificat ion and ? proposed procedure were verif ied by ? the physician in the pre-proc edure ? area. Mental Status Examinati on: ? alert and oriented. Airway ? Examination: normal oropharyn geal ? airway and neck mobility. Res piratory ? Examination: clear to auscult ation. ? CV Examination: normal. Proph ylactic ? Antibiotics: The patient does not ? require prophylactic antibiot ics. ? Prior Anticoagulants: The pat ient has ? taken no previous anticoagula nt or ? antiplatelet agents. ASA Grad e ? Assessment: II - A patient wi th mild ? systemic disease. After revie wing the ? risks and benefits, the patie nt was ? deemed in satisfactory condit ion to ? undergo the procedure. The an esthesia ? plan was to use monitored ane sthesia ? care (MAC). Immediately prior to ? administration of medications , the ? patient was re-assessed for a dequacy ? to receive sedatives. The hea rt rate, ? respiratory rate, oxygen satu rations, ? blood pressure, adequacy of p ulmonary ? ventilation, and response to care ? were monitored throughout the ? procedure. The physical statu s of the ? patient was re-assessed after the ? procedure. ? The procedure, indications, b enefits, ? risks and alternatives were e xplained ? to the patient. Specifically ? discussed were potential ? complications including, but not ? limited to, bleeding, perfora tion, ? infection, missing a cancer, and ? adverse medication reactions. The ? Endoscope was introduced thro [facility] the ? mouth, and [facility] ? of duodenum. The patient tole rated ? the procedure well. The upper GI ? endoscopy was accomplished wi [facility] ? difficulty. The patient ryan ated the ? procedure well. ? Findings: ? The esophagus was normal until the distal esophagus ? where there was a 4 cm hiatal hernia from 34-38 cm. ? There was an irregular z-line present which was ? biopsied. There was no mass lesion, stricture or ? nodule. ? The stomach was normal. ? The examined duodenum was normal. ? Moderate Sedation: ? Not applicable - See Anesthesia documentation Impression: ?- Irregular z-line in the context of ? a 4 cm hiatal hernia - biopsi ed Recommendation: ?- Await pathology results ? - Continue Nexium ? Attending Participation: ? I personally performed the entire procedure. ? Jordin Matta MD 06/03/2019 9:17:27 AM This report has been signed electronically. Number of Addenda: 0 Note Initiated On: 06/03/2019 8:52 AM Specimen (Source) Anatomical Collection Method Collection Time Re ceived Time Location / / Volume Laterality 06/03/2019 8:52 AM EDT Unknown GENERAL SURGICAL ORDERABLES Performing Organization Address City/State/ZIP Code Phon e Number [facility] documented in this encounter Visit Diagnoses Not [...] 8:52 AM EDT 100 mL/hr 100 mL/hr documented in this encounter Active and Recently Administered Medications Times are shown in EDT. Continuous Medication Order 06/01/2019 06/02/2019 06/03/2019 lactated ringers infusion (CANCELED) [id number] (New Bag - Provider: Angel Bliss RN)0902 (New Bag - Provider: Gilberto Ramon CRNA) 100 mL/hr, at 100 mL/hr, Intravenous, CO NTINUOUS, Starting 06/03/19 at 0845, Until 06/03/19 at 1005, Endo (Day of Procedure) documented in this encounter Care Teams Remittance Clerk Relationship Specialty Start Date End Date Desire Augustin APRN PCP - General Family Medicine 02/19/18 08/12/[address] [place] [address] documented as of this encounter
--- OUTSIDE RECORDS SUMMARY | 2022-07-21 01:05 | XMS_ITS | Encounter Summary ---
:1960 Author Organization [facility] [place] [address] Care Team Providers Name Role Phone Desire Augustin APRN Primary Care Provider Encounter Details Date Type Department Care Team Description 06/03/2019 Surgery Gastroenterology at [facility] Jordin Matta EGD WITH BIOPSY ([facility] Jami Schroeder MD [address]) [place] [address] [facility] [phone] DR GASTROENTEROLOGY [place], [place] [address] Social History Tobacco Use Types Packs/Day Years Used Date Current Every Day Smoker Cigarettes 1 Smokeless Tobacco: Never Used Alcohol Use Standard Drinks/Week Comments Not Currently 0 (1 standard drink = 0.6 oz pure alcoho l) Sex Assigned at Date Recorded Not on file documented as of this encounter Last Filed Vital Signs Vital Sign Reading Time Taken Comments Blood Pressure 111/79 06/03/2019 9:30 AM EDT Pulse 68 06/03/2019 8:36 AM EDT Temperature 36.8 ??C (98.2 ??F) 06/03/2019 8:36 AM EDT Respiratory Rate 16 06/03/2019 9:30 AM EDT Oxygen Saturation 95% 06/03/2019 9:30 AM EDT Inhaled Oxygen Concentration - - Weight 120.2 kg (265 lb) 06/03/2019 8:36 AM EDT Height 188 cm (6' 2) 06/03/2019 8:36 AM EDT Body Mass Index 34.02 06/03/2019 8:36 AM EDT documented in this encounter Discharge Instructions Discharge InstructionsNettie Johnsone E, RN - 06/03/2019 9:22 AM EDT UPPER [...] better as expected. Sunday-Sunday Same Day Endo [phone] 7a-8p Otherwise contact [phone] and ask to speak to the lapel padder blindstitch industrial relations representative Follow-up care is a vega part of [...] AM 9 9:14 EDT AM EDT Narrative [facility] - 06/03/2019 9:14 AM EDT Specimen requisition ordered. ??Separate Pathology report to follow Jordin Matta MD PATHOLOGY/CYTOLOGY ORDERABLE S Performing Organization Address City/State/[place] [address] Surgical Pathology Report (06/03/2019 9:11 AM EDT) Component Value Ref Test Analysis Performed At [facility] gist Range Method Time Signature Surgical [id number] ? Location: 4T; EA07; A [facility] Report The signing pathologist has (i) examined the relevant preparation(s) for the [facility] specimen(s) and (ii) rendered or confirmed the diagnosis(es) . HOSPITAL LABORATORY . ?Surgic al Pathology DIAGNOSIS GE junction, esophagus, ?? 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 ??There is no evidence of intestinal metaplasia. Electronically signed by: ??Margarette Mendiola MD Verified: ??06/05/2019 ?Pathologist Performed at: ??-[facility] Dept. of Pathology, [place], [place] CLINICAL INFORMATION Specimen Submitted: A - [...] MD PATHOLOGY/CYTOLOGY ORDERABLE S Performing Organization Address City/State/[facility] [place] [address] UPPER GI ENDOSCOPY (06/03/2019 8:52 AM EDT) Component Value Ref Test Analysis Performed At [facility] Method Time Signature UPPER GI [facility] ENDOSCOPY Endoscopy Procedure Date: 06/03/2019 8:52 AM ? Patient Name: Du Mojica ? Date of : 1960 ? Age: 58 ? Order #: [id number] ? Instrument Name: [id number] ? Procedure: ? Upper GI endoscopy Indications: ? Heartburn Providers: ? Jordin Matta MD, Brandy William , ? Du Lunsford Referring : ?Desire Augustin Medicines: ? Monitored Anesthesia Care [...] reactions. The ? Endoscope was introduced thro [facility] the ? mouth, and [facility] ? of duodenum. The patient tole rated ? the procedure well. The upper GI ? endoscopy was accomplished [facility] ? difficulty. The [...] [employer] documented in this encounter Visit Diagnoses Diagnosis Gastroesophageal reflux disease, esophag itis presence not specified documented in this encounter Administered Medications Inactive Administered Medications - up to 3 most recent administrations Medication Order MAR Action Action Date Dose Rate Site lactated ringers infusion New Bag 06/03/2019 9:02 AM EDT 100 mL/hr, Intravenous, CONTINUOUS, Starting on Tu06/03/19 at 0845, Until Sun06/03/19 at 1005, Endoscopy [...] Procedure) documented in this encounter Care Teams Microsoft Developer Relationship Specialty Start Date End Date Desire Augustin APRN PCP - General Family Medicine 02/19/18 08/12/[address] [place] [address] [place] [address] documented as of this encounter
--- OUTSIDE RECORDS SUMMARY | 2022-07-21 01:05 | XMS_ITS | Encounter Summary ---
:1960 Author Organization [facility] [place] [address] Care Team Providers Name Role Phone Price Kilpatrick DO Primary Care Provider Encounter Details Date Type Department Care Team Description 09/05/2019 Telephone Gastroenterology at [place] [address] Social History Tobacco Use Types Packs/Day Years Used Date Current Every Day Smoker Cigarettes 1 Smokeless Tobacco: Never Used Alcohol Use Standard Drinks/Week Comments Not Currently 0 (1 standard drink = 0.6 oz pure alcoho l) Sex Assigned at Date Recorded Not on file documented as of this encounter Miscellaneous Notes Telephone Encounter - Christal De Dios - 10/15/2019 12:09 PM EST Previous entry in Error- RMD did request HREM in addition to Marie. Telephone Encounter - Christal De Dios - 10/15/2019 11:43 AM EST Since pt having Marie done via EGD, no need for HREM prior. Telephone Encounter - Christal De Dios - 09/05/2019 12:00 PM EST ESOPHAGEAL MANOMETRY CLINICAL SAFETY CHECKLIST 09/05/2019 Christal De Dios [place] [address] [facility] [id number] : 1960 REFERRING PROVIDER: Dr. Osman PRIMARY CARE PROVIDER: Price Kilpatrick DO PRIMARY SYMPTOM (PROCEDURE INDICATION): other: GERD, HH Marie PH off meds, esoplageal motility SAFETY QUESTIONS HISTORY OF TRANSSPHENOIDAL OR PITUITARY SURGERY? no IF YES, please inform the patient that the test cannot be scheduled due to safety concerns about testing, and the patient should speak with their provider to consider alternative testing. The schedulershould also contact the provider's office directly to notify them that we are unable to schedule dueto a contraindication to testing. Then, delete the remainder of this checklist and close out the referral. HISTORY OF NASAL SURGERY IN THE LAST SIX MONTHS? no IF YES: PT CANNOT BE SCHEDULED DUE TO SAFETY CONCERNS until we receive documented clearance by theirENT provider. Then, delete the remainder of this checklist and close out the referral. QUESTIONS FOR THE PATIENT DIABETIC? no Diabetic patients should speak with their PCP or managing provider at least two weeks before the test to ask what medication or insulin adjustments are needed for testing. If the patient feels ill while fasting due to diabetes, it is OK to have a little apple juice - just enough to feel better. Patients fast 8 hours before testing and the test lasts 1 hour. ALLERGIC TO LIDOCAINE, BENZOCAINE? no (OK to schedule procedure but please document type of allergy if present) BLOOD THINNERS SUCH PLAVIX, COUMADIN, PRADAXA? no (pt does not have to stop any blood thinners for this procedure) DOES THE PATIENT USE A WHEELCHAIR? no VERBAL PATIENT INSTRUCTIONS The written instructions are very important for the patient to review and contain specific dietary and medication instructions prior to testing. These instructions will give the patient the most accurate test result. The patient should speak with their referring provider or our office if they have any questions. APPOINTMENT NOTES TEMPLATE HREM, symptom: other: GERD, HH Marie PH off meds, esoplageal motility, RMD: Dr. Osman, PCP: Coy Kilpatrick DO, wheelchair: No, blood thinners: No, allergy to lidocaine/benzocaine/novocaine: No (At exit, the RMD for appointment notes is the GI provider who saw the patient) MARIE CLINICAL SAFETY CHECKLIST 09/05/2019 Christal Mojica [address] [facility] [address] [id number] : 1960 REFERRING PROVIDER: Dr. Osman PRIMARY CARE PROVIDER: Price Kilpatrick, PRIMARY SYMPTOM (PROCEDURE INDICATION): other: GERD, HH Marie PH off meds, esoplageal motility SAFETY QUESTIONS PACEMAKER/DEFIBRILLATOR? no NEUROSTIMULATOR? no ESOPHAGEAL VARICES? no SENSITIVITY OR ALLERGY TO NICKEL? no BLOOD THINNERS SUCH PLAVIX, COUMADIN, PRADAXA, ELIQUIS, XARELTO, PLAVIX? no IF YES TO ANY OF THE ABOVE PRE-PROCEDURE QUESTIONS, please inform the patient that the test cannot be scheduled due to safety concerns about testing, and the patient should speak with their provider toconsider alternative testing. The operations scheduler should also contact the provider's office directly to notify them that we are unable to schedule due to a contraindication to testing. Then, delete the remainder of this checklist and close out the referral. QUESTIONS TO THE PROVIDER PLEASE READ THE RESPONSES! DOES THE PROVIDER REQUEST AN EGD/MARIE? Provider requested an EGD: Schedule an EGD Marie. QUESTIONS TO THE PATIENT PATIENT AGREE TO IN-PERSON RETURN OF CHEF DE CUISINE WITHIN 72H OF CAPSULE PLACEMENT: yes PT AGREES THEY MUST NOT HAVE AN MRI FOR 30 DAYS AFTER MARIE CAPSULE IS PLACED (okay for pt to have echocardiogram or ultrasound): yes DIABETIC? no Diabetic patients should speak with their PCP or managing provider at least two weeks before the test to ask what medication or insulin adjustments are needed for testing. If the patient feels ill while fasting due to diabetes, it is OK to have a little apple juice - just enough to feel better. Patients fast 8 hours before testing and the test lasts 1 hour. DOES THE PATIENT USE A WHEELCHAIR? no VERBAL PATIENT INSTRUCTIONS FOR off-PPI STUDY The written instructions are very important for the patient to review and contain specific dietary and medication instructions prior to testing. These instructions will give the patient the most accurate test result. The patient should speak with their referring provider or our office if they have any questions. For this test, it is important that the patient hold proton pump inhibitors (PPIs) for seven days before testing, but it is OK to use H2-blockers (zantac, ranitidine) up to 24 hours before testing. APPOINTMENT NOTES TEMPLATE MARIE placed by EGD (only if provider requests EGD, or with large hiatal hernia >=3cm) EGD Marie off PPI, symptom: other: GERD, HH Marie PH off meds, esoplageal motility, RMD: Dr. Osman, PCP: Price Kilpatrick DO (At exit, the RMD for appointment notes is the GI provider who saw the patient) EGD PATIENT SAFETY QUESTIONS ENDO Booked by: [facility] PRIOR EGD?: yes PROBLEMS DURING PRIOR EGD?: no PLAVIX, COUMADIN, PRADAXA? no PACEMAKER/DEFIBRILLATOR? : no DIABETIC? no ALLERGIC TO LATEX, EGGS, OR MEDS? no IRON SUPPLEMENTS: no THREE OR MORE ABDOMINAL SURGERIES? no ANY PAST PROBLEMS WITH SEDATION OR ANESTHESIA? no DAILY SUPPLEMENTAL O2 OR CPAP? no DOES PT TAKE RX PAIN MEDS? no HT: 6'2 WT: 275 AGE: 58 y.o. DOES PT KNOW HE/SHE MUST HAVE A PLATE GLASS POLISHER FOR AFTER PROCEDURE: yes Did not schedule as sent note to Dr. Osman/Gen Surg team to review need for EGD based upon last EGD report of HH 4cm documented in this encounter Plan of Treatment Not on filedocumented as of this encounter Visit Diagnoses Not on filedocumented in this encounter Care Teams [employer] Relationship Specialty Start Date End Date Price Kilpatrick DO PCP - General Family Medicine 08/13/[address] [place] [address] documented as of this encounter
--- NOTE | 2022-07-21 08:00 | DI.CTLCSR_ITS ---
Exam(s) CT CHEST LUNG CANCER SCREEN EXAM: CT CHEST LUNG CANCER SCREEN CLINICAL HISTORY: Screening for lung cancer,smoker, f17.210. TECHNIQUE: Imaging Protocol: Low Dose Technique CONTRAST MATERIAL: None COMPARISON: No exams were available for comparison FINDINGS: CHEST: LUNGS: There are multiple small peripheral bullae over the upper lobes, right more so than left. No bullae seen in the lower lung zones. No pleural effusions. No confluent infiltrates.. There are no confluent infiltrates. No ominous pulmonary nodules. No pleural effusions. MEDIASTINUM: There is no obvious hilar nor mediastinal adenopathy. CARDIAC: Heart size is normal. There is no pericardial effusion.Caliber of the thoracic aorta is wit hin normal limits. OTHER: Renal calculus noted in the mid left kidney. OSSEOUS: No significant osseous lesions.. IMPRESSION: 1. No significant pulmonary nodules. 2. No pleural effusions nor intrathoracic adenopathy. 3. Lung RADS Cat 1 - Negative: No nodules and definitely benign nodules Lung-RADS 1.0 CATEGORIES: Category 0 - Prior chest CT exam(s) being located for comparison. Category 1 - Annual screening in 12 months. No nodules or definitely benign nodules. Category 2 - Annual screening in 12 months. Benign appearance. Nodules with low likelihood of becomin g active cancer. Category 3 - 6-month follow-up. Probably benign. Short-term follow-up suggested. Nodules with low lik elihood of becoming active cancer. Category 4A - 3-month follow-up and CT/PET if >8 mm in size. Suspicious finding. Findings which requi re additional testing. Category 4B - Findings which require additional testing and tissue sampling. Category 4X - Category 3 or 4 nodules with additional features or imaging findings that increases the suspicion of malignancy. Modifier S- Potentially clinically significant findings (non lung cancer) RADIATION DOSE DELIVERED: 97.05mGy.cm Total DLP 2.21mGy CTDIvol DATA REPOSITORY: All CT scans at this facility are submitted to the National Radiology Data Registry (NRDR) Dose Index Registry (DIR) with the [employer] (ACR). RADIATION OPTIMIZATION: All CT scans at this facility use at least one of these dose optimization te chniques: automated exposure control; mA and/or kV adjustment per patient size (includes targeted exa ms where dose is matched to clinical indication); or iterative reconstruction.
== END ==
PROVIDERS: PCP Family Medicine; Visit Provider Family Medicine
DX: F17.210 Nicotine dependence, cigarettes, uncomplicated (principal); Z12.2 Encounter for screening for malignant neoplasm of respiratory organs
CPT/HCPCS: 71271

== ENCOUNTER 2023-04-12 02:49 | Outpatient (CLI) | payer MEDICARE, MEDICAID, SELFPAY ==
[2023-04-12 09:19] LABS: TSH (W/Ref FT4) 3.22 uIU/mL (0.36-3.74)
== END 2023-04-12 02:50 | disposition home or self-care (01) ==
LOC: LBO 02:49
PROVIDERS: PCP Family Medicine; Referring Provider Family Medicine; Visit Provider Family Medicine
DX: E03.9 Hypothyroidism, unspecified (principal)
CPT/HCPCS: 36415; 84443

== ENCOUNTER → 2023-07-23 02:53 | Outpatient (CLI) | payer MEDICARE, MEDICAID, SELFPAY ==
--- NOTE | 2023-07-23 13:20 | DI.CTLCSR_ITS ---
Exam(s) CT CHEST LUNG CANCER SCREEN EXAM: CT CHEST LUNG CANCER SCREEN CLINICAL HISTORY: Screening for lung cancer,former smoker, z87.891. TECHNIQUE: Imaging Protocol: Low Dose Technique CONTRAST MATERIAL: None COMPARISON: CT CT CHEST LUNG CANCER SCREEN from 07/21/2022 FINDINGS: CHEST: LUNGS: 2 tiny subpleural left upper lobe nodules are unchanged. These are in the sub apical region o f the left upper lobe. Peripheral bullae are again noted in the right upper lobe region.. There are no new ominous pulmonary nodules. No infiltrates. No pleural effusions. MEDIASTINUM: There is no obvious hilar nor mediastinal adenopathy. CARDIAC: Heart size is normal. There is no pericardial effusion.Caliber of the thoracic aorta is wit hin normal limits. OTHER: OSSEOUS: No significant osseous lesions.. IMPRESSION: 1. Stable tiny left upper lobe benign appearing nodules. 2. No new significant pulmonary nodules, infiltrates, pleural effusions, nor intrathoracic adenopathy . 3. Lung RADS Cat 1 - Negative: No nodules and definitely benign nodules Lung-RADS 1.0 CATEGORIES: Category 0 - Prior chest CT exam(s) being located for comparison. Category 1 - Annual screening in 12 months. No nodules or definitely benign nodules. Category 2 - Annual screening in 12 months. Benign appearance. Nodules with low likelihood of becomin g active cancer. Category 3 - 6-month follow-up. Probably benign. Short-term follow-up suggested. Nodules with low lik elihood of becoming active cancer. Category 4A - 3-month follow-up and CT/PET if >8 mm in size. Suspicious finding. Findings which requi re additional testing. Category 4B - Findings which require additional testing and tissue sampling. Category 4X - Category 3 or 4 nodules with additional features or imaging findings that increases the suspicion of malignancy. Modifier S- Potentially clinically significant findings (non lung cancer) RADIATION DOSE DELIVERED: Total DLP DATA REPOSITORY: All CT scans at this facility are submitted to the National Radiology Data Registry (NRDR) Dose Index Registry (DIR) with the [employer] (ACR). RADIATION OPTIMIZATION: All CT scans at this facility use at least one of these dose optimization te chniques: automated exposure control; mA and/or kV adjustment per patient size (includes targeted exa ms where dose is matched to clinical indication); or iterative reconstruction.
== END ==
PROVIDERS: PCP Family Medicine; Visit Provider Family Medicine
DX: Z87.891 Personal history of nicotine dependence (principal); Z12.2 Encounter for screening for malignant neoplasm of respiratory organs; R91.1 Solitary pulmonary nodule
CPT/HCPCS: 71271

== ENCOUNTER 2024-04-01 08:25 | Outpatient (CLI) | payer MEDICARE, SELFPAY ==
[2024-04-01 09:12] LABS: Anion Gap 7.4 mmol/L (3-11); BUN 22 mg/dL (7-18); CO2 26.6 mmol/L (21.0-32.0); CREATININE 1.1 mg/dL (0.70-1.30); Chloride 105 mmol/L (98-107); Estimated GFR 76.37 (mL/min/1.73m2); Glucose 104 mg/dL (74-106); Potassium 4.2 mmol/L (3.5-5.1); Sodium 139 mmol/L (136-145); TSH (W/Ref FT4) 3.02 uIU/mL (0.36-3.74)
== END 2024-04-01 08:26 | disposition home or self-care (01) ==
LOC: LBO 08:26
PROVIDERS: PCP Family Medicine; Visit Provider Family Medicine
DX: G62.9 Polyneuropathy, unspecified (principal); E03.9 Hypothyroidism, unspecified
CPT/HCPCS: 36415; 80048; 84443

== ENCOUNTER 2024-05-09 13:35 | Outpatient (REF) | payer MEDICARE, SELFPAY ==
[2024-05-09 15:56] LABS: C Diff PCR Negative (Negative)
[2024-05-10 13:41] LABS: Campylobacter PCR Negative (Negative); Salmonella PCR Negative (Negative); Shiga Toxin PCR Negative (Negative); Shigella/Enteroinvasive Ecoli Negative (Negative)
== END 2024-05-09 13:36 | disposition home or self-care (01) ==
LOC: NCHCN 13:35
PROVIDERS: PCP Family Medicine; Visit Provider Family Medicine
DX: R19.7 Diarrhea, unspecified (principal)
CPT/HCPCS: 87493; 87505; 87177

== ENCOUNTER 2024-06-27 12:04 | Outpatient (REF) | payer MEDICARE, SELFPAY ==
--- NOTE | 2024-06-27 11:20 | SKI_PTH ---
PATIENT: Du Mojica LOC: [facility] U#:[id number] AGE/SX: 63/M ROOM: RE06/27/[address]: YVONNE Munoz : 1960 BED: DIS: 06/27/2024 SPEC #: [id number] RECD: 06/27/24 17:27 STATUS: SCOUT REQ #: [id number] DILIA: 06/27/24 11:[address]: Tl Jett DEPT: Surgical Specimen RECD BY: Jessica Laurent ENTERED: 06/27/24 17:28 SP TYPE: LUDIN CHAVEZ DR: Price Kilpatrick DO Tissues: 1 - SKIN BIOPSY(SHAVE/PUNCH) Procedures: SKIN LEVEL 4 Comments: [id number]
== END 2024-06-27 12:05 | disposition home or self-care (01) ==
LOC: LBN 12:04
PROVIDERS: PCP Family Medicine; Visit Provider Physician Assistant
DX: D49.2 Neoplasm of unspecified behavior of bone, soft tissue, and skin (principal); L82.0 Inflamed seborrheic keratosis
CPT/HCPCS: 88305

== ENCOUNTER 2024-07-24 02:04 | Outpatient (CLI) | payer MEDICARE, SELFPAY ==
--- NOTE | 2024-07-24 07:45 | DI.CTLCSR_ITS ---
Exam(s) CT CHEST LUNG CANCER SCREEN EXAM: CT CHEST LUNG CANCER SCREEN CLINICAL HISTORY: Screening for lung cancer,former smoker, z87.891 TECHNIQUE: Imaging Protocol: Axial computed tomography images with coronal and sagittal reformatted images were created and reviewed. Computer aided detection (CAD) was utilized. COMPARISON: CT CT CHEST LUNG CANCER SCREEN from 07/21/[address] CHEST LUNG CANCER SCREEN from 07/23/2023 FINDINGS: Tracheobronchial tree: Patent where visualized. No bronchiectasis. Pulmonary parenchyma: No consolidation or dominant measurable mass. Mild emphysematous changes are pr esent. These include both centrilobular and paraseptal changes. Lung Nodules: No suspicious pulmonary nodules. Mediastinum and Bhakti: No dominant adenopathy or fluid collection. The esophagus is unremarkable.There is a small hiatal hernia. Thyroid gland: Unremarkable. Lymph nodes: Unremarkable. Pleura: No effusion or pneumothorax. Heart: The heart is not dilated. Coronary artery calcification is present. No pericardial effusion. Aorta: Thoracic aorta non-dilated.Atherosclerotic calcification is present. Upper abdomen: Calcified granuloma are seen in the spleen. There is a stable round hypodensity in t he posterior segment of the right lobe of the liver. This likely reflects a benign lesion such as a cyst or hemangioma. Soft Tissues: Unremarkable. Bones: Within normal limits. IMPRESSION: No suspicious pulmonary nodules. Lung RADS Cat 1 - Negative: No nodules and definitely benign nodules Lung-RADS 1.0 CATEGORIES: Category 0 - Prior chest CT exam(s) being located for comparison. Category 1 - Annual screening in 12 months. No nodules or definitely benign nodules. Category 2 - Annual screening in 12 months. Benign appearance. Nodules with low likelihood of becomin g active cancer. Category 3 - 6-month follow-up. Probably benign. Short-term follow-up suggested. Nodules with low lik elihood of becoming active cancer. Category 4A - 3-month follow-up and CT/PET if >8 mm in size. Suspicious finding. Findings which requi re additional testing. Category 4B - Findings which require additional testing and tissue sampling. Suspicious finding. Category 4X - Category 3 or 4 nodules with additional features or imaging findings that increases the suspicion of malignancy. Modifier S- Potentially clinically significant finding. (Non lung cancer) RADIATION DOSE DELIVERED: 95.22mGy.cm Total DLP 95.22mGy.cmTotal DLP DATA REPOSITORY: All CT scans at this facility are submitted to the National Radiology Data Registry (NRDR) Dose Index Registry (DIR) with the [employer] (ACR). RADIATION OPTIMIZATION: All CT scans at this facility use at least one of these dose optimization te chniques: automated exposure control; mA and/or kV adjustment per patient size (includes targeted exa ms where dose is matched to clinical indication); or iterative reconstruction.
== END 2024-07-24 02:24 ==
LOC: DI 02:04
PROVIDERS: PCP Family Medicine; Visit Provider Family Medicine
DX: Z87.891 Personal history of nicotine dependence (principal); Z12.2 Encounter for screening for malignant neoplasm of respiratory organs
CPT/HCPCS: 71271

== ENCOUNTER 2025-02-17 13:13 | Outpatient (CLI) | payer MEDICARE, SELFPAY ==
[2025-02-17 16:02] LABS: TSH (W/Ref FT4) 5.25 uIU/mL (0.36-3.74)
[2025-02-18 12:08] LABS: FREE T4 1.11 ng/dL (0.76-1.46)
== END 2025-02-17 13:14 | disposition home or self-care (01) ==
LOC: LBO 13:13
PROVIDERS: PCP Family Medicine; Visit Provider Family Medicine
DX: E03.9 Hypothyroidism, unspecified (principal)
CPT/HCPCS: 36415; 84439; 84443

== ENCOUNTER 2025-05-13 03:47 | Outpatient (CLI) | payer MEDICARE, SELFPAY ==
[2025-05-13 09:38] LABS: Anion Gap 5.1 mmol/L (3-11); BUN 16 mg/dL (7-18); CO2 29.9 mmol/L (21.0-32.0); Calcium 9.1 mg/dL (8.5-10.1); Chloride 104 mmol/L (98-107); Estimated GFR 75.90 (mL/min/1.73m2); Glucose 119 mg/dL (74-106); Potassium 4.2 mmol/L (3.5-5.1); Sodium 139 mmol/L (136-145); TSH (W/Ref FT4) 1.09 uIU/mL (0.36-3.74)
== END 2025-05-13 03:48 | disposition home or self-care (01) ==
LOC: LBO 03:47
PROVIDERS: Nurse Practitioner Family; PCP Family Medicine; Referring Provider Family Medicine; Visit Provider Family Medicine
DX: E03.9 Hypothyroidism, unspecified (principal); I10 Essential (primary) hypertension
CPT/HCPCS: 36415; 80048; 84443

== ENCOUNTER 2025-09-02 01:34 | Outpatient (CLI) | payer MEDICARE, SELFPAY ==
[2025-09-02 11:09] LABS: TSH (W/Ref FT4) 4.08 uIU/mL (0.55-4.78)
== END 2025-09-02 01:35 | disposition home or self-care (01) ==
LOC: LBO 01:34
PROVIDERS: PCP Family Medicine; Visit Provider Family Medicine
DX: E03.9 Hypothyroidism, unspecified (principal)
CPT/HCPCS: 36415; 84443

== ENCOUNTER → 2025-09-15 00:28 | Outpatient (CLI) | payer MEDICARE, SELFPAY ==
--- NOTE | 2025-09-15 07:45 | DI.CTLCSR_ITS ---
Exam(s) CT CHEST LUNG CANCER SCREEN EXAM: CT CHEST LUNG CANCER SCREEN CLINICAL HISTORY: Screening for lung cancer,former tobacco use,z87.891 TECHNIQUE: Imaging Protocol: Axial computed tomography images with coronal and sagittal reformatted images were created and reviewed. Lung Computer Aided Detection (CAD) was utilized. COMPARISON: CT CT CHEST LUNG CANCER SCREEN from 07/24/2024 FINDINGS: Tracheobronchial tree: Patent where visualized. No bronchiectasis. Pulmonary parenchyma: No consolidation or dominant measurable mass. No architectural distortion. There are mild emphysematous changes seen in the lungs. Lung Nodules: There are no suspicious pulmonary nodules. Mediastinum and Bhakti: No dominant adenopathy or fluid collection. The esophagus is unremarkable. Thyroid gland: Unremarkable. Lymph nodes: Unremarkable. Pleura: No effusion or pneumothorax. Heart: The heart is not dilated. Mild coronary artery calcification is present. No pericardial effusion. Aorta: Thoracic aorta non-dilated.Atherosclerotic calcification is present. Upper abdomen: There has been no change in the well-circumscribed hypodense round lesion in the posterior right lobe. This likely reflects a benign lesion such as a cyst. There are splenic calcified granuloma present. Soft Tissues: Unremarkable. Bones: Within normal limits. IMPRESSION: There are no suspicious pulmonary nodules. Lung RADS Cat 1 - Negative: No nodules and definitely benign nodules Lung-RADS 1.0 CATEGORIES: Category 0 - Prior chest CT exam(s) being located for comparison. Category 1 - Annual screening in 12 months. No nodules or definitely benign nodules. Category 2 - Annual screening in 12 months. Benign appearance. Nodules with low likelihood of becoming active cancer. Category 3 - 6-month follow-up. Probably benign. Short-term follow-up suggested. Nodules with low likelihood of becoming active cancer. Category 4A - 3-month follow-up and CT/PET if >8 mm in size. Suspicious finding. Findings which require additional testing. Category 4B - Findings which require additional testing and tissue sampling. Suspicious finding. Category 4X - Category 3 or 4 nodules with additional features or imaging findings that increases the suspicion of malignancy. Modifier S- Potentially clinically significant finding. (Non lung cancer) RADIATION DOSE DELIVERED: 121.02mGy.cm Total DLP 121.02mGy.cmTotal DLP DATA REPOSITORY: All CT scans at this facility are submitted to the National Radiology Data Registry (NRDR) Dose Index Registry (DIR) with the [employer] (ACR). RADIATION OPTIMIZATION: All CT scans at this facility use at least one of these dose optimization techniques: automated exposure control; mA and/or kV adjustment per patient size (includes targeted exams where dose is matched to clinical indication); or iterative reconstruction.
== END ==
LOC: DI 00:28
PROVIDERS: PCP Family Medicine; Visit Provider Family Medicine
DX: Z12.2 Encounter for screening for malignant neoplasm of respiratory organs (principal); Z87.891 Personal history of nicotine dependence
CPT/HCPCS: 71271

== ENCOUNTER 2025-09-16 08:04 | Outpatient (CLI) | payer MEDICARE, SELFPAY ==
[2025-09-16 08:36] LABS: Abs Immature Grans 0.03 10^3/uL (0.0-0.06); HCT 44.8 % (40.0-50.0); HGB 15.0 g/dL (13.5-17.5); Immature Grans % 0.3 %; MCH 30.1 pg (27.0-33.0); MCHC 33.5 % (32.0-36.0); MCV 90 fL (80-95); MPV 9.2 fL (8.0-11.0); Platelet Count 328 10^3/uL (130-400); RBC 4.99 10^6/uL (4.36-5.78); RDW 13.3 % (11.8-14.1); RDW-SD 43.7 fL; WBC 9.03 10^3/uL (4.4-10.8)
[2025-09-16 08:38] LABS: ESR 26 mm/hr (0-20)
[2025-09-16 09:01] LABS: C-Reactive Protein < 0.50 mg/dL (<=0.50)
[2025-09-17 11:22] LABS: Lyme Ab w Rflx to Lyme Confirm Negative (Negative)
[2025-09-18 14:17] LABS: B. miyamotoi PCR Negative (Negative); Babesia divergens/MO-1 Negative (Negative); Ehrlichia muris eauclairensis Negative (Negative)
[2025-09-25 23:27] LABS: Testosterone, Free 34.5 pg/mL (35.0-155.0)
== END 2025-09-16 08:05 | disposition home or self-care (01) ==
LOC: LBO 08:04
PROVIDERS: PCP Family Medicine; Visit Provider Family Medicine
DX: M35.3 Polymyalgia rheumatica (principal); R53.83 Other fatigue
CPT/HCPCS: 36415; 84402; 84403; 85652; 87798; 85025; 86140; 86618